=== PATIENT | male | born 1965 | race Caucasian/White ===

== ENCOUNTER 2022-12-02 12:09 | Emergency (ER) | payer BC, OTHER ==
--- OUTSIDE RECORDS SUMMARY | 2022-12-02 12:17 | XMS REPORT | Continuity of Care Document ---
:1965 Author Organization [facility] t Address [address] [place] [address] Care Team Providers Name Role Phone Unavailable Unavailable Unavailable Problems This patient has no known problems. Allergies, Adverse Reactions, Alerts This patient has no known allergies or adverse reactions. Medications This patient has no known medications. Procedures This patient has no known procedures. Encounters Start End Encounter Admission Attending Care Care Encounter Source Date/Time Date/Time Type Type Clinicians Facility Department ID 2022-07-27 2022-07-27 Outpatient SFA SFA [id number] [id number] Jose C 17:03:17 17:03:17 [id number] [facility] 2022-07-04 2022-07-04 Outpatient SFA SFA [id number] [id number] Jose C 17:21:38 17:21:38 [id number] [facility] 2022-06-30 2022-06-30 Outpatient SFA SFA [id number] Jose C 11:09:59 11:09:59 [id number] [facility] 2022-06-26 2022-06-26 Outpatient SFA SFA [id number] Jose C 17:19:05 17:19:05 [id number] [facility] 2022-06-06 2022-06-06 Outpatient SFA SFA [id number] [id number] Jose C 16:00:00 16:00:00 0222 [facility] 2022-05-29 2022-05-29 Outpatient SFA SFA [id number] Jose C 17:21:40 17:21:40 0214 [facility] 2022-04-28 2022-04-28 Outpatient SFA SFA [id number] 023 Jose C 08:57:50 08:57:50 0114 [facility] 2022-04-25 2022-04-25 Outpatient SFA SFA [id number] [id number] Jose C 16:20:42 16:20:42 0111 F Daniel Results Test Description Test Time Test Comments Results Result Comments Source COMPREHENSIVE METABOLIC PANEL 2022-07-02 01:29:48 Test Item Value Reference Range Interpretation Comme nts GLUCOSE (test code = 2217) 116 MG/DL 70-99 H BUN (test code = 2208) 13 MG/DL 6-20 CREATININE (test code = 1.28 MG/DL 0.80-1.40 2213) eGFR (2020 CKD-EPI) (test 66 ML/MIN/1.73 >60 code = 44526) CALC BUN/CREAT (test code = 10 RATIO 6-28 2234) SODIUM (test code = 223) 144 MEQ/L 133-146 POTASSIUM (test code = 4.8 MEQ/L 3.5-5.4 2227) CHLORIDE (test code = 221) 105 MEQ/L 95-107 CARBON DIOXIDE (test code = 25 MEQ/L 19-31 2205) CALCIUM (test code = 220) 9.8 MG/DL 8.5-10.5 PROTEIN, TOTAL (test code = 7.3 G/DL 6.1-8.3 2228) ALBUMIN (test code = 2201) 4.4 G/DL 3.5-5.2 CALC GLOBULIN (test code = 2.9 G/DL 1.9-3.7 2239) CALC A/G RATIO (test code = 1.5 RATIO 1.0-2.6 2233) BILIRUBIN, TOTAL (test code 0.4 MG/DL See_Comment [Automated message] The = 2206) system which ge nerated this result transmit sangita reference range: <=1.2. T he reference range was not u sed to interpret this result as normal/abnormal . ALKALINE PHOSPHATASE (test 89 U/L 40-123 code = 2204) AST (test code = 2218) 40 U/L 9-50 ALT (test code = 2219) 45 U/L 5-[address] [facility] has important pathology staff changes effective 06/13. New pathology staff will provide uninterrupted, excellent patient care an d clinical consultation. S ee URL: [email or web address] UNLESS OTHER JAFFE INDICATED, ALL TESTING PERFORMED AT [facility] [address] [place] [address] LABORATORY DIRE CTOR: TANGELA VIVEROS M.D. CLIA NUMBER [id number] CAP ACCREDITATION N O. [id number] HIV 1/2 4TH GEN, RFLX [id number] 03:14:07 Test Item Value Reference Range Interpretation Comments HIV 1/2 4TH GEN, RFLX CONF (test NON-REACTIVE NON-REACTIVE code = 3514) [id number] 23:35:03 Test Item Value Reference Range Interpretation Comments RPR RESULT (test code = NON-REACTIVE NON-REACTIVE 3501) RPR TITER (test code = 3500) NOT INDIC. TITER NOT INDIC. CT/NG, NAAT, [id number] 18:07:47 Test Item Value Reference Range Interpretation Comments GONORRHEA, NAAT NEGATIVE NEGATIVE Testing is performed with (test code = Tiffany DAY 680 [address]349) systems usingre al-time polymerase cecilia n reaction (PCR) method. A negative result does not exclude low level infection , specimensamplin g error, or collection erro r. CHLAMYDIA, NAAT NEGATIVE NEGATIVE Testing is performed with (test code = Tiffany DAY 680 91662) systems usingre al-time polymerase cecilia n reaction (PCR) method. A negative result does not exclude low level infection , specimensamplin g error, or collection erro r. LIPID [id number] 01:59:34 Test Item Value Reference Range Interpretation Comments CHOLESTEROL (test 172 MG/DL <200 code = 2210) TRIGLYCERIDES (test 169 MG/DL <150 H code = 2232) HDL CHOLESTEROL (test 34 MG/DL >39 L code = 2220) CALC LDL CHOL (test 109 MG/DL <100 H NOTE: C ALCULATED LDL code = 2237) IS BASED ON ABA-NORTON METHOD WHICHINCLUDES ADJUSTABLE TRIGLYCERIDE:VL DL CHOLESTEROL RAT IO.THIS FACTOR VARIES B Y MEASURED TRIGLY CERIDE AND NON-HDLCHOL ESTEROL CONCENTRATIONS WITH INCREASED CALCU LATED LDL SEENIN HIGH ER TRIGLYCERIDE OR LOWER NON-HDL SPECIME NS. FOR MOREINFORMATION , SEE CLIENT ANNOUNCE MENT AT [email or web address] RISK RATIO LDL/HDL 3.21 RATIO <3.55 (test code = 2238) PSA, [id number] 01:22:04 Test Item Value Reference Range Interpretation Comments PSA, TOTAL 0.99 NG/ML See_Comment NOTE: Methodol ogy is Tiffany (test code = Day Electroch emiluminescence 2606) Immunoassay tra ceable to WHO reference stand mauro 96/760. [Automated mess age] The system which generated this result transmitted ref erence range: <=4.00. The ref erence range was not used to int erpret this result as mynor l/abnormal. HEMOGLOBIN [id number] 07:02:52 Test Item Value Reference Range Interpretation Comments HEMOGLOBIN A1c (test 5.8 % 4.2-5.6 H UNLESS OTHERWISE code = 68438) INDICATED, ALL TESTING PERFORMED [facility] [address] [place] [address] [facility] DIRECTOR: Leonard PEREZIA NUMBER [id number] CAP ACCREDITATION N O. [id number]
[2022-12-02 12:50] LABS: Absolute Lymphocytes (CBC) 2.4 K/uL (0.7-4.9); Hematocrit 46.4 % (39.6-49.0); Lymphocytes % 22.3 % (15.3-44.8); MCV 87.2 fL (80-100); MPV 6.7 fL (7.6-11.3); Platelets 281 thou/uL (152-406); RBC Red Blood Cell Count 5.32 M/uL (4.33-5.43)
[2022-12-02 12:51] LABS: Protime INR 1.14
[2022-12-02 13:06] LABS: Albumin 3.5 g/dL (3.4-5.0); Bilirubin Direct 0.1 mg/dL (0-0.2); Bilirubin Indirect, Calculated 0.3 mg/dL (0.2-0.8); Bilirubin Total 0.4 mg/dL (0.2-1.0); Potassium 3.9 mEq/L (3.5-5.1); Protein, Total 7.1 g/dL (6.4-8.2); Troponin High Sensitivity 5.3 pg/mL (<58.9)
[2022-12-02] MEDS ORDERED: NA CHLORIDE 0.9% 1,000 ML ONE (13:44)
--- NOTE | 2022-12-02 13:44 | RAD REPORT ---
EXAM DESCRIPTION: CT - Chest For Pe Angio - 12/02/2022 1:32 pm CLINICAL HISTORY: back pain COMPARISON: CTANGIO CHEST FOR PE dated 11/01/2013 TECHNIQUE: Dynamically enhanced axial 3 mm thick images of the chest were obtained during administra tion of <100> mL Isovue 370 IV contrast. Coronal and oblique reconstruction images were generated and reviewed. Exam utilizes a protocol for optimal evaluation of pulmonary arterial tree. Maximum intensity projections 3D imaging was utilized All CT scans are performed using dose optimization technique as appropriate and may include automated exposure control or mA/KV adjustment according to patient size. FINDINGS: Chest Wall: No suspicious thyroid nodules or pathologic lymphadenopathy. Lungs: No acute abnormality. Pleura: No significant effusions or pneumothorax. Mediastinum/micki: No pathologic lymphadenopathy. Pulmonary arteries/Aorta: No filling defect identified. No aortic aneurysm. Heart: No significant pericardial effusion. Normal heart size. Upper abdomen: No acute abnormality.Hepatic steatosis. Circumferential thickened distal esophagus. Bones: No acute abnormality. IMPRESSION: Negative for pulmonary embolism. No acute findings in the chest.
--- NOTE | 2022-12-02 13:44 | RAD REPORT ---
EXAM DESCRIPTION: RAD - Chest Single View - 12/02/2022 1:37 pm CLINICAL HISTORY: back pain COMPARISON: CHEST SINGLE VIEW dated 11/03/2013; CHEST SINGLE VIEW dated 11/01/2013 FINDINGS: Lines: None. Lungs: No evidence of edema or pneumonia. Pleural: No significant pleural effusions or pneumothorax. Cardiac: The heart size is within normal limits. Mediastinum: Within normal limits. Bones: No acute fractures. Other: None IMPRESSION: No acute cardiopulmonary disease.
--- NOTE | 2022-12-02 13:48 | EDPHYS ---
Physician Documentation [facility] Name: Krzysztof Granado Age: 57 yrs Sex: Male : 1965 Arrival Date: 12/02/2022 Time: 12:09 Bed 16 Private MD: ED Physician Santino Gilliland HPI: 12/02 13:37 This 57 yrs old Male presents to ER via Ambulatory with complaints of Back Pain. snw 13:37 The patient presents with pain that is acute, with no known mechanism of injury. The snw symptoms are located in the right scapular area. Onset: The symptoms/episode began/occurred suddenly. The pain does not radiate. Associated signs and symptoms: The patient has no apparent associated signs or symptoms. The problem was sustained from unknown cause, feels like when he has a PE in the past. Severity of symptoms: At their worst the symptoms were moderate. The patient has experienced a previous episode. It is unknown whether or not the patient has recently seen a physician. Historical: - Allergies: 12:18 Benadryl; nj1 12:18 Sudafed; nj1 - PMHx: 12:18 Diabetes mellitus; Hypertensive disorder; Hypercholesterolemia; PE; nj1 - Immunization history:: Client reports receiving the 2nd dose of the Covid vaccine. - Social history:: Smoking status: Patient/guardian denies using tobacco, the patient reports quitting approximately 9 years ago. ROS: 13:38 Constitutional: Negative for fever, chills, and weight loss, Eyes: Negative for injury, snw pain, redness, and discharge, ENT: Negative for injury, pain, and discharge, Neck: Negative for injury, pain, and swelling, Cardiovascular: Negative for chest pain, palpitations, and edema, Respiratory: Negative for shortness of breath, cough, wheezing, and pleuritic chest pain, Abdomen/GI: Negative for abdominal pain, nausea, vomiting, diarrhea, and constipation, : Negative for injury, bleeding, discharge, and swelling, MS/Extremity: Negative for injury and deformity, Skin: Negative for injury, rash, and discoloration, Neuro: Negative for headache, weakness, numbness, tingling, and seizure, Psych: Negative for depression, anxiety, suicide ideation, homicidal ideation, and hallucinations. 13:38 Back: Positive for pain at rest, pain with movement, of the right scapular area, feels like when he had a PE, no trauma, denies smoking since 2015, c/o intermittent left lower ext swelling. Exam: 13:39 Constitutional: This is a well developed, well nourished patient who is awake, alert, snw and in no acute distress. Head/Face: Normocephalic, atraumatic. Eyes: Pupils equal round and reactive to light, extra-ocular motions intact. Lids and lashes normal. Conjunctiva and sclera are non-icteric and not injected. Cornea within normal limits. Periorbital areas with no swelling, redness, or edema. ENT: Nares patent. No nasal discharge, no septal abnormalities noted. Tympanic membranes are normal and external auditory canals are clear. Oropharynx with no redness, swelling, or masses, exudates, or evidence of obstruction, uvula midline. Mucous membranes moist. Neck: Trachea midline, no thyromegaly or masses palpated, and no cervical lymphadenopathy. Supple, full range of motion without nuchal rigidity, or vertebral point tenderness. No Meningismus. Chest/axilla: Normal chest wall appearance and motion. Nontender with no deformity. No lesions are appreciated. Cardiovascular: Regular rate and rhythm with a normal S1 and S2. No gallops, murmurs, or rubs. Normal PMI, no JVD. No pulse deficits. Abdomen/GI: Soft, non-tender, with normal bowel sounds. No distension or tympany. No guarding or rebound. No evidence of tenderness throughout. Back: No spinal tenderness. No costovertebral tenderness. Full range of motion. Skin: Warm, dry with normal turgor. Normal color with no rashes, no lesions, and no evidence of cellulitis. MS/ Extremity: Pulses equal, no cyanosis. Neurovascular intact. Full, normal range of motion. Neuro: Awake and alert, GCS 15, oriented to person, place, time, and situation. Cranial nerves II-XII grossly intact. Motor strength 5/5 in all extremities. Sensory grossly intact. Cerebellar exam normal. Normal gait. Psych: Awake, alert, with orientation to person, place and time. Behavior, mood, and affect are within normal limits. 13:39 Respiratory: the patient does not display signs of respiratory distress, Respirations: normal, Breath sounds: rhonchi, are located in both bases. 13:39 Neuro: Exam negative for acute changes. 13:39 Special observations: no evidence of discomfort, the patient smiles, the patient tolerates PO fluids, tolerates food. Vital Signs: 12:15 BP 117 / 81; Pulse 86; Resp 18; Temp 97.9(O); Pulse Ox 98% ; Weight 99.79 kg; Height 5 nj1 ft. 10 in. ; Pain 1/10; 14:00 BP 128 / 87; Pulse 78; Resp 16; Pulse Ox 98% on R/A; db 12:15 Body Mass Index 31.57 (99.79 kg, 177.8 cm) nj1 12:15 Pain Scale: Adult nj1 Cassie Coma Score: 13:39 Eye Response: spontaneous(4). Motor Response: obeys commands(6). Verbal Response: snw oriented(5). Total: 15. MDM: 12:30 Patient medically screened. snw 13:24 ED course: Pt to CT via w/c in no distress. snw 13:52 Differential diagnosis: Basilar Pneumonia chronic back pain, Fatigue Peptic Ulcer. Data snw reviewed: vital signs, nurses notes. Counseling: I had a detailed discussion with the patient and/or guardian regarding the historical points, exam findings, and any diagnostic results supporting the discharge/admit diagnosis, lab results, radiology results, the need for outpatient follow up, for definitive care, a assorter laundry, to return to the emergency department if symptoms worsen or persist or if there are any questions or concerns that arise at home. Response to treatment: the patient's symptoms have mildly improved after treatment. 12/02 12:25 Order name: Basic Metabolic Panel; Complete Time: 13:10 snw 12/02 12:25 Order name: CBC with Diff; Complete Time: 13:16 snw 12/02 12:25 Order name: LFT's; Complete Time: 13:10 snw 12/02 12:25 Order name: Magnesium; Complete Time: 13:10 snw 12/02 12:25 Order name: NT PRO-BNP; Complete Time: 13:10 snw 12/02 12:25 Order name: PT-INR; Complete Time: 12:51 snw 12/02 12:25 Order name: Troponin HS; Complete Time: 13:10 snw 12/02 12:25 Order name: CT Chest For PE Angio; Complete Time: 13:45 snw 12/02 12:25 Order name: XRAY Chest (1 view); Complete Time: 13:45 snw 12/02 12:25 Order name: EKG; Complete Time: 12:26 snw 12/02 12:25 Order name: Cardiac monitoring; Complete Time: 13:18 snw 12/02 12:25 Order name: EKG - Nurse/Tech; Complete Time: 13:18 snw 12/02 12:25 Order name: IV Saline Lock; Complete Time: 12:39 snw 12/02 12:25 Order name: Labs collected and sent; Complete Time: 12:39 snw 12/02 12:25 Order name: O2 Per Protocol; Complete Time: 12:39 snw 12/02 12:25 Order name: O2 Sat Monitoring; Complete Time: 12:39 snw EC:50 Rate is 78 beats/min. IN interval is normal. Q waves are Present in leads III, aVR. snw Clinical impression: NSR w/ Non-specific ST/T Changes. Administered Medications: 13:42 Drug: NS 0.9% IV 1000 ml Route: IV; Rate: 1 bolus; Site: left antecubital; db 14:32 Follow up: Response: No adverse reaction; IV Status: Completed infusion; IV Intake: db 1000ml 14:15 Drug: Pantoprazole IVP 40 mg Route: IVP; Site: left antecubital; db 14:32 Follow up: Response: No adverse reaction db Disposition Summary: 12/02/22 13:47 Discharge Ordered Location: Home snw Condition: Stable snw Diagnosis - Strain of muscle and tendon of back wall of thorax snw - Esophagitis, unspecified snw Followup: snw - With: Emergency Department - When: As needed - Reason: Worsening of condition Followup: snw - With: Private Physician - When: 2 - 3 days - Reason: Recheck today's complaints, Continuance of care, Re-evaluation by your physician Discharge Instructions: - Discharge Summary Sheet snw - Esophagitis snw - Back Injury Prevention snw - Bruin Diet snw - Nonalcoholic Fatty Liver Disease Diet, Adult snw Forms: - Medication Reconciliation Form snw - Thank You Letter snw - Antibiotic Education snw - Prescription Opioid Use snw - Patient Portal Instructions snw - Leadership Thank You Letter snw Prescriptions: - Protonix 40 mg Oral Tablet - take 1 tablet by ORAL route once daily; 30 tablet; Refills: 0, Product snw Selection Permitted Signatures: Dispatcher [employer] Agnieszka Posey FNP-C LINE SERVER-Diorw Lory Thomas, RN RN db Flakita Kenny RN RN nj1
--- NOTE | 2022-12-02 13:48 | ER ---
Nurse's Notes [facility] Name: Krzysztof Granado Age: 57 yrs Sex: Male : 1965 Arrival Date: 12/02/2022 Time: 12:09 Bed 16 Private MD: Diagnosis: Strain of muscle and tendon of back wall of thorax;Esophagitis, unspecified Presentation: 12/02 12:15 Chief complaint: Patient states: Right upper back pain, onset a couple days ago. Had nj1 the same pain back in 2013, let it go longer, and ended up having blood clots. Concerned it could be the same. Coronavirus screen: Vaccine status: Patient reports receiving the 2nd dose of the covid vaccine. Ebola Screen: Patient denies travel to an Ebola-affected area in the 21 days before illness onset. Initial Sepsis Screen: Does the patient meet any 2 criteria? No. Patient's initial sepsis screen is negative. Does the patient have a suspected source of infection? No. Patient's initial sepsis screen is negative. Risk Assessment: Do you want to hurt yourself or someone else? Patient reports no desire to harm self or others. Onset of symptoms was November 29, 2022. 12:15 Method Of Arrival: Ambulatory [facility] 12:15 Acuity: SIMONA 3 nj1 Historical: - Allergies: 12:18 Benadryl; nj1 12:18 Sudafed; nj1 - PMHx: 12:18 Diabetes mellitus; Hypertensive disorder; Hypercholesterolemia; PE; nj1 - Immunization history:: Client reports receiving the 2nd dose of the Covid vaccine. - Social history:: Smoking status: Patient/guardian denies using tobacco, the patient reports quitting approximately 9 years ago. Screenin:40 [facility] ED Fall Risk Assessment (Adult) History of falling in the last 3 months, db including since admission No falls in past 3 months (0 pts) Confusion or Disorientation No (0 pts) Intoxicated or Sedated No (0 pts) Impaired Gait No (0 pts) Mobility Assist Device Used No (0 pt) Altered Elimination No (0 pt) Score/Fall Risk Level 0 - 2 = Low Risk Oriented to surroundings, Maintained a safe environment. Abuse screen: Denies threats or abuse. Denies injuries from another. Nutritional screening: No deficits noted. Assessment: 13:05 Reassessment: Patient appears in no apparent distress at this time. Patient and/or db family updated on plan of care and expected duration. Pain level reassessed. Patient is alert, oriented x 3, equal unlabored respirations, skin warm/dry/pink. COMPLAINS OF BACK PAIN. General: Appears in no apparent distress. comfortable, Behavior is calm, cooperative. Pain: Complains of pain in back and right scapular area. Neuro: Level of Consciousness is awake, alert, obeys commands, Oriented to person, place, time, situation. Respiratory: Airway is patent Respiratory effort is even, unlabored, Respiratory pattern is regular, symmetrical. 14:12 Reassessment: Patient appears in no apparent distress at this time. Patient and/or db family updated on plan of care and expected duration. Pain level reassessed. Patient is alert, oriented x 3, equal unlabored respirations, skin warm/dry/pink. Vital Signs: 12:15 BP 117 / 81; Pulse 86; Resp 18; Temp 97.9(O); Pulse Ox 98% ; Weight 99.79 kg; Height 5 nj1 ft. 10 in. ; Pain 1/10; 14:00 BP 128 / 87; Pulse 78; Resp 16; Pulse Ox 98% on R/A; db 12:15 Body Mass Index 31.57 (99.79 kg, 177.8 cm) nj1 12:15 Pain Scale: Adult nj1 Cassie Coma Score: 13:39 Eye Response: spontaneous(4). Motor Response: obeys commands(6). Verbal Response: snw oriented(5). Total: 15. ED Course: 12:12 Patient arrived in ED. ts1 12:18 Triage completed. nj1 12:19 Arm band placed on right wrist. nj1 12:23 Agnieszka Parmar FNP-C is [facility]. snw 12:23 Santino Gilliland MD is Attending Physician. snw 12:25 Lory Thomas, SERA is Primary Nurse. db 12:39 Inserted saline lock: 20 gauge in left antecubital area, using aseptic technique. Blood ds4 collected. 13:33 CT Chest For PE Angio In Process Unspecified. EDMS 13:38 XRAY Chest (1 view) In Process Unspecified. EDMS 14:40 Patient has correct armband on for positive identification. Bed in low position. Call db light in reach. Side rails up X 1. Provided Education on: DISCHARGE. 14:40 No provider procedures requiring assistance completed. IV discontinued, intact, db bleeding controlled, No redness/swelling at site. Administered Medications: 13:42 Drug: NS 0.9% IV 1000 ml Route: IV; Rate: 1 bolus; Site: left antecubital; db 14:32 Follow up: Response: No adverse reaction; IV Status: Completed infusion; IV Intake: db 1000ml 14:15 Drug: Pantoprazole IVP 40 mg Route: IVP; Site: left antecubital; db 14:32 Follow up: Response: No adverse reaction db Medication: 14:40 VIS not applicable for this client. db Intake: 14:32 IV: 1000ml; Total: 1000ml. db Outcome: 13:47 Discharge ordered by . snw 14:40 Discharged to home ambulatory, with family. db 14:40 Condition: stable 14:40 Discharge instructions given to patient, Instructed on discharge instructions, follow up and referral plans. Prescriptions given X 1. 14:41 Patient left the ED. db Signatures: Dispatcher [employer] EDMS Agnieszka Parmar, ACCOUNT MANAGER [employer]-C ACCOUNT MANAGER [employer]-Csnw Vinicio Peres ds4 Lory Thomas, RN RN db Flakita Kenny RN RN nj1 Evie Logan PAS PAS ts1
[2022-12-02] MEDS ORDERED: PANTOPRAZOLE 40 MG INJ ONE (14:27)
[2022-12-02 14:59] VITALS: TEMP 97.9; O2SAT 98
[2022-12-02 15:04] VITALS: BP 128/87
--- NOTE | 2022-12-03 17:58 | EKG ---
Test Date: 2022-12-02 Test Time: 12:46:49 Rehabilitation Physician: JAYLYN MEASUREMENT RESULTS: Intervals: Rate: 78 NH: 128 QRSD: 94 QT: 374 QTc: 426 [place]: P: 45 NH: 128 QRS: -5 T: 24 INTERPRETIVE STATEMENTS: Normal sinus rhythm Normal ECG Compared to ECG 11/01/2013 07:38:28 No significant changes Electronically Signed On 12-03-22 17:56:43 CDT by Ignacio Castro
== END 2022-12-02 14:41 | disposition home or self-care (01) ==
LOC: ER 12:09
DX: S29.012A Strain of muscle and tendon of back wall of thorax, initial encounter (principal); K20.90 Esophagitis, unspecified without bleeding; Z88.8 Allergy status to other drugs, medicaments and biological substances
CPT/HCPCS: 96361; 93005; 85025; 80048; 36415; 83735; 85610; 80076; 84484; 83880; 71275; 71045; 96374; 99284; Q9967; C9113; J7030

== ENCOUNTER 2023-10-10 09:21 | Emergency (ER) | payer OTHER ==
--- OUTSIDE RECORDS SUMMARY | 2023-10-10 09:25 | XMS REPORT | Continuity of Care Document ---
Author Name Unknown Address [address] [facility] [place] [place] [address] [facility] thconnect Address [address] [facility] [place] [place] [address] Care Team Providers Care Contract Law Specialist Name Role Phone Sujatha JOYA, [facility] Primary Care Physician [phone] MANOLO RODRIGUEZ Attending Clinician Alecia tesfaye Payers Payer Name Policy Type Policy Number Effective Date Expirati on Date Source [employer] MP [facility] 5 O TELEVISION AGENT 94 ON 9 [id number] 2023 00:00:00 Medications Ordered Medication Name Filled Medication Name Start Date Stop Date Current Medication? Ordering Clinician Indication Dosage Frequency Signature (SIG) Comments Components Source GABAPENTIN 300MG(N) 4-15 00:00: 00 Yes 300 Jose C Sanchez METFORMIN ER 500MG GP 3-05 00:00: 00 Yes Jose C Sanchez ATORVASTATI N 10MG 3-05 00:00: 00 Yes Jose C Sanchez LISINOPRIL 10MG 2-08 00:00: 00 Yes Jose C Sanchez ATORVASTATI N 10MG 2022-04- 00:00: 00 Yes Jose C Sanchez LISINOPRIL 10MG 2022-04 1-13 00:00: 00 Yes Jose C Sanchez TAKE 1 TABLET BY MOUTH EVERY DAY 2022-04 0-16 00:00: 00 Yes 10 Jose C Sanchez TAKE 1 TABLET DAILY. 2022-04 0-16 00:00: 00 Yes 10 Jose C Sanchez TAKE 1 TABLET DAILY DIRECTED. 2022-04 0-16 00:00: 00 Yes 500 Jose Cjosé miguel Sanchez 1-2 CAPSULES ONCE A DAY 30 MINUTES PRIOR TO BEDTIME 2022-04 0-16 00:00: 00 08-04 00:00 :00 No 3 Jose C Sam Sanchez PANTOPRAZOL E 40MG DR 8-20 00:00: 00 Yes Jose C Sam Sanchez TAKE 1 TABLET BY MOUTH EVERY DAY 8-15 00:00: 00 08-04 00:00 :00 No Jose C Sam Sanchez TAKE 1 TABLET BY MOUTH EVERY DAY DIRECTED 815 00:00: 00 08-04 00:00 :00 No Jose C F Daniel TAKE 1 TABLET DAILY 8- 00:00: 00 08-04 00:00 :00 No Jose C F Daniel TAKE 1 TABLET BY MOUTH EVERY DAY 4-07 00:00: 00 08-04 00:00 :00 No Jose C Sam Daniel TAKE 1 TABLET DAILY. 3-14 00:00: 00 08-04 00:00 :00 No 10 Jose C Sam Sanchez TAKE 1 TABLET DAILY. 2-14 00:00: 00 08-04 00:00 :00 No 10 Jose C Sam Sanchez TAKE 1 TABLET DAILY DIRECTED. 2-14 00:00: 00 08-04 00:00 :00 No 500 Jose C Sam Sanchez DICLOFENAC 1% GEL 1-11 00:00: 00 Yes Jose C Sam Sanchez TAKE 1 TABLET EVERY 8 HOURS NEEDED. 1-11 00:00: 00 08-04 00:00 :00 No 800 Jose Cjosé miguel Sanchez Vital Signs Vital Name Observation Time Observation Value Comments S aldiallo BP Systolic 2023-07-29 16:00:00 127 mm[Hg] Step hen Sam Sanchez BP Diastolic 2023-07-29 16:00:00 83 mm[Hg] [place] cohen Sam Sanchez Weight Measured 2023-07-29 16:00:00 229.80 pounds Jose Cjosé miguel Sanchez Height Measured 2023-07-29 16:00:00 70.00 inches Jose C Sam Sanchez Body Temperature 2023-07-29 16:00:00 98.10 degrees Jose C F Daniel Heart Rate 2023-07-29 16:00:00 71.00 /min Audrey en F Daniel Respiratory Rate 2023-07-29 16:00:00 19.00 /min Jose C F Daniel BP Systolic 2023-05-07 16:12:00 110 mm[Hg] Step hen F Daniel BP Diastolic 2023-05-07 16:12:00 74 mm[Hg] [place] phen F Daniel Weight Measured 2023-05-07 16:12:00 218.00 pounds Jose C F Daniel Height Measured 2023-05-07 16:12:00 70.00 inches Jose C F Daniel Body Temperature 2023-05-07 16:12:00 97.50 degrees Jose C F Daniel Heart Rate 2023-05-07 16:12:00 81.00 /min Audrey en F Daniel Respiratory Rate 2023-05-07 16:12:00 18.00 /min Jose C F Daniel BP Systolic 2023-01-28 17:08:00 119 mm[Hg] Step hen F Daniel BP Diastolic 2023-01-28 17:08:00 72 mm[Hg] [place] phen F Daniel Weight Measured 2023-01-28 17:08:00 225.80 pounds Jose C F Daniel Height Measured 2023-01-28 17:08:00 70.00 inches Jose C F Daniel Body Temperature 2023-01-28 17:08:00 97.10 degrees Jose C F Daniel Heart Rate 2023-01-28 17:08:00 74.00 /min Audrey en F Daniel Respiratory Rate 2023-01-28 17:08:00 Jose C F Daniel BP Systolic 2022-12-08 10:59:00 121 mm[Hg] Step hen F Daniel BP Diastolic 2022-12-08 10:59:00 80 mm[Hg] [place] phen F Daniel Weight Measured 2022-12-08 10:59:00 220.80 pounds Jose C F Daniel Height Measured 2022-12-08 10:59:00 70.00 inches Jose C F Daniel Body Temperature 2022-12-08 10:59:00 98.80 degrees Jose C F Daniel Heart Rate 2022-12-08 10:59:00 74.00 /min Adurey en F Daniel Respiratory Rate 2022-12-08 10:59:00 Jose C F Daniel Heart Rate 2022-07-27 17:14:00 81.00 /min Audrey en F Daniel Respiratory Rate 2022-07-27 17:14:00 18.00 /min Jose C F Daniel BP Systolic 2022-07-27 17:14:00 132 mm[Hg] Step hen F Daniel BP Diastolic 2022-07-27 17:14:00 77 mm[Hg] [place] phen F Daniel Weight Measured 2022-07-27 17:14:00 220.80 pounds Joes C F Daniel Height Measured 2022-07-27 17:14:00 70.00 inches Jose C F Daniel Body Temperature 2022-07-27 17:14:00 98.20 degrees Jose C F Daniel BP Systolic 2022-06-26 17:36:00 144 mm[Hg] Step hen F Daniel BP Diastolic 2022-06-26 17:36:00 84 mm[Hg] [place] phen F Daniel Weight Measured 2022-06-26 17:36:00 230.20 pounds Jose C F Daniel Height Measured 2022-06-26 17:36:00 70.00 inches Jose C F Daniel Body Temperature 2022-06-26 17:36:00 98.10 degrees Jose C F Daniel Heart Rate 2022-06-26 17:36:00 73.00 /min Audrey en F Daniel Respiratory Rate 2022-06-26 17:36:00 18.00 /min Jose C F Daniel BP Systolic 2022-06-26 17:25:00 144 mm[Hg] Step hen F Daniel BP Diastolic 2022-06-26 17:25:00 84 mm[Hg] [place] phen F Daniel Weight Measured 2022-06-26 17:25:00 230.20 pounds Jose C F Daniel Height Measured 2022-06-26 17:25:00 70.00 inches Jose C F Daniel Body Temperature 2022-06-26 17:25:00 98.10 degrees Jose C F Daniel Heart Rate 2022-06-26 17:25:00 73.00 /min Audrey en F Daniel Respiratory Rate 2022-06-26 17:25:00 18.00 /min Jose C F Daniel BP Systolic 2022-06-06 16:03:00 135 mm[Hg] Step hen F Daniel BP Diastolic 2022-06-06 16:03:00 88 mm[Hg] [place] phen F Daniel Weight Measured 2022-06-06 16:03:00 220.20 pounds Jose C F Daniel Height Measured 2022-06-06 16:03:00 70.00 inches Jose C F Daniel Body Temperature 2022-06-06 16:03:00 98.60 degrees Jose C F Daniel Heart Rate 2022-06-06 16:03:00 79.00 /min Audrey en F Daniel Respiratory Rate 2022-06-06 16:03:00 18.00 /min Jose C F Daniel BP Systolic 2022-05-29 17:28:00 150 mm[Hg] Step hen F Daniel BP Diastolic 2022-05-29 17:28:00 115 mm[Hg] [place] phen F Daniel Weight Measured 2022-05-29 17:28:00 222.00 pounds Jose C F Daniel Height Measured 2022-05-29 17:28:00 70.00 inches Jose C F Daniel Body Temperature 2022-05-29 17:28:00 98.20 degrees Jose C F Daniel Heart Rate 2022-05-29 17:28:00 81.00 /min Audrey en F Daniel Respiratory Rate 2022-05-29 17:28:00 18.00 /min Jose C F Daniel BP Systolic 2022-04-25 16:27:00 134 mm[Hg] Step hen F Daniel BP Diastolic 2022-04-25 16:27:00 90 mm[Hg] [place] phen F Daniel Weight Measured 2022-04-25 16:27:00 223.80 pounds Jose C F Daniel Height Measured 2022-04-25 16:27:00 70.00 inches Jose C F Daniel Body Temperature 2022-04-25 16:27:00 98.40 degrees Jose C F Daniel Heart Rate 2022-04-25 16:27:00 97.00 /min Audrey en F Daniel Respiratory Rate 2022-04-25 16:27:00 18.00 /min Jose C F Daniel Encounters Start Date/Time End Date/Time Encounter Type Admission Type Attending [facility] Care Department Encounter ID Source 2023-10-10 08:30:00 2023-10-10 08:30:00 Outpatient MANOLO RODRIGUEZ [id number] Francisca Mart 2023-09-11 16:00:00 2023-09-11 16:00:00 Outpatient MANOLO RODRIGUEZ [id number] Francisca Mart 2023-07-29 15:53:44 2023-07-29 15:53:44 Outpatient SFA SFA [id number] Jose C Sanchez 2023-07-29 00:00:00 2023-07-29 00:00:00 Outpatient Visit SFA [id number] Jose C Sanchez 2023-05-08 08:31:21 2023-05-08 08:31:21 Outpatient SFA SFA [id number] Jose C Sanchez 2023-05-07 15:59:02 2023-05-07 15:59:02 Outpatient SFA SFA [id number] Jose C Sanchez 2023-01-28 17:07:55 2023-01-28 17:07:55 Outpatient SFA SFA [id number] Jose C Sanchez 2022-12-08 10:55:50 2022-12-08 10:55:50 Outpatient SFA SFA [id number] Jose C Sanchez 2022-07-27 17:03:17 2022-07-27 17:03:17 Outpatient SFA SFA [id number] Jose C Sanchez 2022-07-04 17:21:38 2022-07-04 17:21:38 Outpatient SFA SFA [id number] Jose C Sanchez 2022-06-30 11:09:59 2022-06-30 11:09:59 Outpatient SFA SFA [id number] Jose C Sanchez 2022-06-26 17:19:05 2022-06-26 17:19:05 Outpatient SFA SFA [id number] Jose C Sanchez 2022-06-06 16:00:00 2022-06-06 16:00:00 Outpatient SFA SFA [id number] Jose C Sanchez 2022-05-29 17:21:40 2022-05-29 17:21:40 Outpatient SFA SFA [id number] Jose C Sanchez 2022-04-28 08:57:50 2022-04-28 08:57:50 Outpatient [facility] [id number] Jose C Sanchez 2022-04-25 16:20:42 2022-04-25 16:20:42 Outpatient [facility] [id number] Jose C Sanchez Results Test Description Test Time Test Comments Results Result Co mments Source TSH, THIRD [id number] 04:26:39* Test Item Value Reference Range Interpretation Comme nts TSH, THIRD GENERATION (test code = 2821) 1.150 UIU/ML 0.400-4.100 LIPID [id number] 04:24:29* Test Item Value Reference Range Interpretation Comme nts CHOLESTEROL (test code = 2210) 145 MG/DL <200 TRIGLYCERIDES (test code = 2232) 160 MG/DL <150 H HDL CHOLESTEROL (test code = 2220) 34 MG/DL >39 L CALC LDL CHOL (test code = 2237) 85 MG/DL <100 NOTE: CALCULATED LDL IS BASED ON ABA-NORTON METHOD WHICHINCLUDES ADJUSTABLE TRIGLYCERIDE:VLDL CHOLESTEROL RATIO.THIS FACTOR VARIES BY MEASURED TRIGLYCERIDE AND NON-HDLCHOLESTEROL CONCENTRATIONS WITH INCREASED CALCULATED LDL SEENIN HIGHER TRIGLYCERIDE OR LOWER NON-HDL SPECIMENS. FOR MOREINFORMATION, SEE CLIENT ANNOUNCEMENT AT [email or web address] RISK RATIO LDL/HDL (test code = 2238) 2.50 RATIO <3.55 COMPREHENSIVE METABOLIC [id number] 04:24:29* Test Item Value Reference Range Interpretation Comme nts GLUCOSE (test code = 2217) 98 MG/DL 70-99 BUN (test code = 2208) 16 MG/DL 6-20 CREATININE (test code = 2214) 1.24 MG/DL 0.80-1.40 eGFR (2020 CKD-EPI) (test co de = 14446) 68 ML/MIN/1.73 >60 CALC BUN/CREAT (test code = 2235) 13 RATIO 6-28 SODIUM (test code = 2231) 141 MEQ/L 133-146 POTASSIUM (test code = 2228) 4.5 MEQ/L 3.5-5.4 CHLORIDE (test code = 2215) 104 MEQ/L 95-107 CARBON DIOXIDE (test code = 2206) 24 MEQ/L 19-31 CALCIUM (test code = 2208) 9.8 MG/DL 8.5-10.5 PROTEIN, TOTAL (test code = 2228) 7.5 G/DL 6.1-8.3 ALBUMIN (test code = 2200) 4.5 G/DL 3.5-5.2 CALC GLOBULIN (test code = 2239) 3.0 G/DL 1.9-3.7 CALC A/G RATIO (test code = 2233) 1.5 RATIO 1.0-2.6 BILIRUBIN, TOTAL (test code = 2206) 0.4 MG/DL <=1.2 ALKALINE PHOSPHATASE (test code = 2203) 76 U/L 40-123 AST (test code = 2217) 36 U/L 9-50 ALT (test code = 2218) 43 U/L 5-50 HEMOGLOBIN [id number] 03:23:41* Test Item Value Reference Range Interpretation Comme nts HEMOGLOBIN A1c (test code = 95746) 5.8 % 4.2-5.6 H [employer] GUIDELINES FOR HGB A1C: PREDIABETES/INCREASED RISK . . . . . . . 5.7-6.4% DIAGNOSIS OF DIABETES . . . . . . . . . >=6.5% WITH CONFIRMATION OR APPROPRIATE SYMPTOMS NOTE: ASSAY MAY BE AFFECTED BY HEMOGLOBINOPATHIES (SICKLE CELL ANEMIA, S-C DISEASE, OTHERS) OR ARTIFICIALLY LOWERED BY DECREASED RED CELL SURVIVAL (HEMOLYTIC ANEMIAS, BLOOD LOSS, ETC.). CONSIDER ALTERNATE TESTING OR LABORATORY CONSULTATION. CBC W/AUTO DIFF WITH [id number] 02:14:20* Test Item Value Reference Range Interpretation Comme nts WBC (test code = 1001) 9.0 K/UL 3.5-11.0 RBC (test code = 1002) 5.65 M/UL 4.50-6.10 HEMOGLOBIN (test code = 1003) 16.5 G/DL 13.5-17.0 HEMATOCRIT (test code = 1004) 49.4 % 40.0-51.0 MCV (test code = 1005) 87.4 fL 80.0-99.0 MCH (test code = 1006) 29.2 PG 25.0-33.0 MCHC (test code = 1007) 33.4 G/DL 31.0-36.0 RDW (test code = 1038) 12.6 % 11.5-15.0 NEUTROPHILS (test code = 1008) 55.5 % LYMPHOCYTES (test code = 1010) 28.1 % MONOCYTES (test code = 1011) 9.9 % EOSINOPHILS (test code = 1012) 5.5 % BASOPHILS (test code = 1013) 0.7 % IMMATURE GRANULOCYTES (test code = 1036) 0.3 % NUCLEATED RBCS (test code = 1065) 0.0 /100 WBC'S See_Comment [Automated messa ge] The system which generated this result transmitted reference range: 0.0. The reference range was not used to interpret this result as normal/abnormal. PLATELET COUNT (test code = 1015) 298 K/UL 130-400 ABSOLUTE NEUTROPHILS (test code = 1066) 4.97 K/UL 1.50-7.50 ABSOLUTE LYMPHOCYTES (test code = 1067) 2.52 K/UL 1.00-4.00 ABSOLUTE MONOCYTES (test code = 1068) 0.89 K/UL 0.20-1.00 ABSOLUTE EOSINOPHILS (test code = 1040) 0.49 K/UL 0.00-0.50 ABSOLUTE BASOPHILS (test code = 1069) 0.06 K/UL 0.00-0.20 ABS IMMATURE GRANULOCYTES (test code = 1020) 0.03 K/UL 0.00-0.10 ABS NUCLEATED RBCS (test code = 77352) 0.00 K/UL 0.00-0.11 VITAMIN D, 25 [id number] 00:00:00* Test Item Value Reference Range Interpretation Comme nts VITAMIN D, 25 OH (test code = 4958) 42 NG/ML [facility]AUTO [id number] 00:00:00* Test Item Value Reference Range Interpretation Comme nts WBC (test code = 1001) 9.0 K/UL RBC (test code = 1002) 5.65 M/UL HEMOGLOBIN (test code = 1003) 16.5 G/DL HEMATOCRIT (test code = 1004) 49.4 % MCV (test code = 1005) 87.4 fL MCH (test code = 1006) 29.2 PG MCHC (test code = 1007) 33.4 G/DL RDW (test code = 1038) 12.6 % NEUTROPHILS (test code = 1008) 55.5 % LYMPHOCYTES (test code = 1010) 28.1 % MONOCYTES (test code = 1011) 9.9 % EOSINOPHILS (test code = 1012) 5.5 % BASOPHILS (test code = 1013) 0.7 % IMMATURE GRANULOCYTES (test code = 1036) 0.3 % NUCLEATED RBCS (test code = 1065) 0.0 /100WBC'S PLATELET COUNT (test code = 1015) 298 K/UL ABSOLUTE NEUTROPHILS (test c ode = 1066) 4.97 K/UL ABSOLUTE LYMPHOCYTES (test c ode = 1067) 2.52 K/UL ABSOLUTE MONOCYTES (test cod e = 1068) 0.89 K/UL ABSOLUTE EOSINOPHILS (test c ode = 1040) 0.49 K/UL ABSOLUTE BASOPHILS (test cod e = 1069) 0.06 K/UL ABS IMMATURE GRANULOCYTES (t est code = 1020) 0.03 K/UL ABS NUCLEATED RBCS (test cod e = 27309) 0.00 K/UL Jose C SanchezHEMOGLOBIN [id number] 00:00:00* Test Item Value Reference Range Interpretation Comme nts HEMOGLOBIN A1c (test code = 92743) 5.8 % Jose C SanchezLIPID [id number] 00:00:00* Test Item Value Reference Range Interpretation Comme nts CHOLESTEROL (test code = 2210) 145 MG/DL TRIGLYCERIDES (test code = 2232) 160 MG/DL HDL CHOLESTEROL (test code = 2220) 34 MG/DL CALC LDL CHOL (test code = 2237) 85 MG/DL RISK RATIO LDL/HDL (test cod e = 2238) 2.50 RATIO Jose C SanchezCOMPREHENSIVE METABOLIC [id number] 00:00:00* Test Item Value Reference Range Interpretation Comme nts GLUCOSE (test code = 2217) 98 MG/DL BUN (test code = 2208) 16 MG/DL CREATININE (test code = 2214) 1.24 MG/DL eGFR (2020 CKD-EPI) (test co de = 10333) 68 ML/MIN/1.73 CALC BUN/CREAT (test code = 2235) 13 RATIO SODIUM (test code = 2231) 141 MEQ/L POTASSIUM (test code = 2228) 4.5 MEQ/L CHLORIDE (test code = 2215) 104 MEQ/L CARBON DIOXIDE (test code = 2206) 24 MEQ/L CALCIUM (test code = 2209) 9.8 MG/DL PROTEIN, TOTAL (test code = 2229) 7.5 G/DL ALBUMIN (test code = 2201) 4.5 G/DL CALC GLOBULIN (test code = 2240) 3.0 G/DL CALC A/G RATIO (test code = 2234) 1.5 RATIO BILIRUBIN, TOTAL (test code = 2207) 0.4 MG/DL ALKALINE PHOSPHATASE (test code = 220) 76 U/L AST (test code = 2218) 36 U/L ALT (test code = 2219) 43 U/L Jose C SanchezTSH, THIRD [id number] 00:00:00* Test Item Value Reference Range Interpretation Comme nts TSH, THIRD GENERATION (test code = 2821) 1.150 UIU/ML Jose C SanchezLIPID [id number] 03:52:10* Test Item Value Reference Range Interpretation Comme nts CHOLESTEROL (test code = 2210) 125 MG/DL <200 TRIGLYCERIDES (test code = 2232) 241 MG/DL <150 H HDL CHOLESTEROL (test code = 2220) 31 MG/DL >39 L CALC LDL CHOL (test code = 2237) 64 MG/DL <100 NOTE: CALCULATED LDL IS BASED ON ABA-[place] METHOD WHICHINCLUDES ADJUSTABLE TRIGLYCERIDE:VLDL CHOLESTEROL RATIO.THIS FACTOR VARIES BY MEASURED TRIGLYCERIDE AND NON-HDLCHOLESTEROL CONCENTRATIONS WITH INCREASED CALCULATED LDL SEENIN HIGHER TRIGLYCERIDE OR LOWER NON-HDL SPECIMENS. FOR MOREINFORMATION, SEE CLIENT ANNOUNCEMENT AT [email or web address] RISK RATIO LDL/HDL (test code = 2238) 2.06 RATIO <3.55 COMPREHENSIVE METABOLIC [id number] 03:52:10* Test Item Value Reference Range Interpretation Comme nts GLUCOSE (test code = 2216) 137 MG/DL 70-99 H BUN (test code = 2207) 16 MG/DL 6-20 CREATININE (test code = 2214) 1.27 MG/DL 0.80-1.40 eGFR (2020 CKD-EPI) (test code = 82450) 66 ML/MIN/1.73 >60 CALC BUN/CREAT (test code = 2235) 13 RATIO 6-28 SODIUM (test code = 223) 143 MEQ/L 133-146 POTASSIUM (test code = 8) 4.6 MEQ/L 3.5-5.4 CHLORIDE (test code = 2215) 107 MEQ/L 95-107 CARBON DIOXIDE (test code = 6) 25 MEQ/L 19-31 CALCIUM (test code = 2208) 9.5 MG/DL 8.5-10.5 PROTEIN, TOTAL (test code = 2228) 7.0 G/DL 6.1-8.3 ALBUMIN (test code = 2200) 4.3 G/DL 3.5-5.2 CALC GLOBULIN (test code = 0) 2.7 G/DL 1.9-3.7 CALC A/G RATIO (test code = 2233) 1.6 RATIO 1.0-2.6 BILIRUBIN, TOTAL (test code = 2206) 0.4 MG/DL See_Comment [Automated me ssage] The system which generated this result transmitted reference range: <=1.2. The reference range was not used to interpret this result as normal/abnormal. ALKALINE PHOSPHATASE (test code = 2203) 66 U/L 40-123 AST (test code = 8) 39 U/L 9-50 ALT (test code = 2219) 42 U/L 5-50 UNLESS OTHERWISE INDICATED, ALL TESTING PERFORMED AT [facility] [address] [place] [address] POST CLOSING SPECIALIST: TANGELA BANGURA M.D. CLIA NUMBER [id number] [facility] [place]. [id number] HEMOGLOBIN [id number] 03:17:16* Test Item Value Reference Range Interpretation Comme nts HEMOGLOBIN A1c (test code = 89856) 5.7 % 4.2-5.6 H [employer] GUIDELINES FOR HGB A1C: PREDIABETES/INCREASED RISK . . . . . . . 5.7-6.4% DIAGNOSIS OF DIABETES . . . . . . . . . >=6.5% WITH CONFIRMATION OR APPROPRIATE SYMPTOMS NOTE: ASSAY MAY BE AFFECTED BY HEMOGLOBINOPATHIES (SICKLE CELL ANEMIA, S-C DISEASE, OTHERS) OR ARTIFICIALLY LOWERED BY DECREASED RED CELL SURVIVAL (HEMOLYTIC ANEMIAS, BLOOD LOSS, ETC.). CONSIDER ALTERNATE TESTING OR LABORATORY CONSULTATION. CBC W/AUTO DIFF WITH [id number] 02:32:30* Test Item Value Reference Range Interpretation Comme nts WBC (test code = 1001) 8.6 K/UL 3.5-11.0 RBC (test code = 1002) 5.41 M/UL 4.50-6.10 HEMOGLOBIN (test code = 1003) 15.7 G/DL 13.5-17.0 HEMATOCRIT (test code = 1004) 47.9 % 40.0-51.0 MCV (test code = 1005) 88.5 fL 80.0-99.0 MCH (test code = 1006) 29.0 PG 25.0-33.0 MCHC (test code = 1007) 32.8 G/DL 31.0-36.0 RDW (test code = 1038) 12.7 % 11.5-15.0 NEUTROPHILS (test code = 1008) 60.9 % LYMPHOCYTES (test code = 1010) 26.0 % MONOCYTES (test code = 1011) 8.4 % EOSINOPHILS (test code = 1012) 3.3 % BASOPHILS (test code = 1013) 0.8 % IMMATURE GRANULOCYTES (test code = 1036) 0.6 % NUCLEATED RBCS (test code = 1065) 0.0 /100 WBC'S See_Comment [Automated messa ge] The system which generated this result transmitted reference range: 0.0. The reference range was not used to interpret this result as normal/abnormal. PLATELET COUNT (test code = 1015) 325 K/UL 130-400 ABSOLUTE NEUTROPHILS (test code = 1066) 5.25 K/UL 1.50-7.50 ABSOLUTE LYMPHOCYTES (test code = 1067) 2.24 K/UL 1.00-4.00 ABSOLUTE MONOCYTES (test code = 1068) 0.72 K/UL 0.20-1.00 ABSOLUTE EOSINOPHILS (test code = 1040) 0.28 K/UL 0.00-0.50 ABSOLUTE BASOPHILS (test code = 1069) 0.07 K/UL 0.00-0.20 ABS IMMATURE GRANULOCYTES (test code = 1020) 0.05 K/UL 0.00-0.10 ABS NUCLEATED RBCS (test code = 64107) 0.00 K/UL 0.00-0.11 CBC W/AUTO [id number] 00:00:00* Test Item Value Reference Range Interpretation Comme nts WBC (test code = 1001) 8.6 K/UL RBC (test code = 1002) 5.41 M/UL HEMOGLOBIN (test code = 1003) 15.7 G/DL HEMATOCRIT (test code = 1004) 47.9 % MCV (test code = 1005) 88.5 fL MCH (test code = 1006) 29.0 PG MCHC (test code = 1007) 32.8 G/DL RDW (test code = 1038) 12.7 % NEUTROPHILS (test code = 1008) 60.9 % LYMPHOCYTES (test code = 1010) 26.0 % MONOCYTES (test code = 1011) 8.4 % EOSINOPHILS (test code = 1012) 3.3 % BASOPHILS (test code = 1013) 0.8 % IMMATURE GRANULOCYTES (test code = 1036) 0.6 % NUCLEATED RBCS (test code = 1065) 0.0 /100WBC'S PLATELET COUNT (test code = 1015) 325 K/UL ABSOLUTE NEUTROPHILS (test c ode = 1066) 5.25 K/UL ABSOLUTE LYMPHOCYTES (test c ode = 1067) 2.24 K/UL ABSOLUTE MONOCYTES (test cod e = 1068) 0.72 K/UL ABSOLUTE EOSINOPHILS (test c ode = 1040) 0.28 K/UL ABSOLUTE BASOPHILS (test cod e = 1069) 0.07 K/UL ABS IMMATURE GRANULOCYTES (t est code = 1020) 0.05 K/UL ABS NUCLEATED RBCS (test cod e = 75232) 0.00 K/UL Jose C SanchezHEMOGLOBIN [id number] 00:00:00* Test Item Value Reference Range Interpretation Comme nts HEMOGLOBIN A1c (test code = 78336) 5.7 % Jose C SanchezLIPID [id number] 00:00:00* Test Item Value Reference Range Interpretation Comme nts CHOLESTEROL (test code = 2210) 125 MG/DL TRIGLYCERIDES (test code = 2232) 241 MG/DL HDL CHOLESTEROL (test code = 2220) 31 MG/DL CALC LDL CHOL (test code = 2237) 64 MG/DL RISK RATIO LDL/HDL (test cod e = 2238) 2.06 RATIO Jose C SanchezCOMPREHENSIVE METABOLIC [id number] 00:00:00* Test Item Value Reference Range Interpretation Comme nts GLUCOSE (test code = 2217) 137 MG/DL BUN (test code = 2208) 16 MG/DL CREATININE (test code = 2214) 1.27 MG/DL eGFR (2020 CKD-EPI) (test co de = 01841) 66 ML/MIN/1.73 CALC BUN/CREAT (test code = 2235) 13 RATIO SODIUM (test code = 2231) 143 MEQ/L POTASSIUM (test code = 2228) 4.6 MEQ/L CHLORIDE (test code = 2215) 107 MEQ/L CARBON DIOXIDE (test code = 2206) 25 MEQ/L CALCIUM (test code = 2209) 9.5 MG/DL PROTEIN, TOTAL (test code = 2229) 7.0 G/DL ALBUMIN (test code = 2201) 4.3 G/DL CALC GLOBULIN (test code = 2240) 2.7 G/DL CALC A/G RATIO (test code = 2234) 1.6 RATIO BILIRUBIN, TOTAL (test code = 2207) 0.4 MG/DL ALKALINE PHOSPHATASE (test code = 2204) 66 U/L AST (test code = 2218) 39 U/L ALT (test code = 2219) 42 U/L Jose C SanchezCOMPREHENSIVE METABOLIC [id number] 01:29:48* Test Item Value Reference Range Interpretation Comme nts GLUCOSE (test code = 2217) 116 MG/DL 70-99 H BUN (test code = 2208) 13 MG/DL 6-20 CREATININE (test code = 2214) 1.28 MG/DL 0.80-1.40 eGFR (2020 CKD-EPI) (test code = 68498) 66 ML/MIN/1.73 >60 CALC BUN/CREAT (test code = 2235) 10 RATIO 6-28 SODIUM (test code = 2231) 144 MEQ/L 133-146 POTASSIUM (test code = 2228) 4.8 MEQ/L 3.5-5.4 CHLORIDE (test code = 2215) 105 MEQ/L 95-107 CARBON DIOXIDE (test code = 2206) 25 MEQ/L 19-31 CALCIUM (test code = 2209) 9.8 MG/DL 8.5-10.5 PROTEIN, TOTAL (test code = 2229) 7.3 G/DL 6.1-8.3 ALBUMIN (test code = 2201) 4.4 G/DL 3.5-5.2 CALC GLOBULIN (test code = 2240) 2.9 G/DL 1.9-3.7 CALC A/G RATIO (test code = 2234) 1.5 RATIO 1.0-2.6 BILIRUBIN, TOTAL (test code = 2207) 0.4 MG/DL See_Comment [Automated me ssage] The system which generated this result transmitted reference range: <=1.2. The reference range was not used to interpret this result as normal/abnormal. ALKALINE PHOSPHATASE (test code = 2204) 89 U/L 40-123 AST (test code = 2218) 40 U/L 9-50 ALT (test code = 2219) 45 U/L 5-50 [facility] has impo rtant pathology staff changes effective 06/13/2022. New pathology staff will provide uninterrupted, excellent patient care and clinical consultation. See URL: [email or web address]. UNLESS OTHERWISE INDICATED, ALL TESTING PERFORMED AT [facility] [address] [place] [address] POST CLOSING SPECIALIST: TANGELA BANGURA M.D. CLIA NUMBER [id number] [facility]. [id number] COMPREHENSIVE METABOLIC [id number] 00:00:00* Test Item Value Reference Range Interpretation Comme nts GLUCOSE (test code = 2217) 116 MG/DL BUN (test code = 2208) 13 MG/DL CREATININE (test code = 2214) 1.28 MG/DL eGFR (2020 CKD-EPI) (test co de = 30879) 66 ML/MIN/1.73 CALC BUN/CREAT (test code = 2235) 10 RATIO SODIUM (test code = 2231) 144 MEQ/L POTASSIUM (test code = 2228) 4.8 MEQ/L CHLORIDE (test code = 2215) 105 MEQ/L CARBON DIOXIDE (test code = 2206) 25 MEQ/L CALCIUM (test code = 2209) 9.8 MG/DL PROTEIN, TOTAL (test code = 2229) 7.3 G/DL ALBUMIN (test code = 2201) 4.4 G/DL CALC GLOBULIN (test code = 2240) 2.9 G/DL CALC A/G RATIO (test code = 2234) 1.5 RATIO BILIRUBIN, TOTAL (test code = 2207) 0.4 MG/DL ALKALINE PHOSPHATASE (test code = 2204) 89 U/L AST (test code = 2218) 40 U/L ALT (test code = 2219) 45 U/L Jose C SanchezHIV 1/2 4TH GEN, RFLX [id number] 03:14:07* Test Item Value Reference Range Interpretation Comme nts HIV 1/2 4TH GEN, RFLX CONF ( test code = 3514) NON-REACTIVE NON-REACTIVE HIV 1/2 4TH GEN, RFLX [id number] 00:00:00* Test Item Value Reference Range Interpretation Comme nts HIV 1/2 4TH GEN, RFLX CONF ( test code = 3514) NON-REACTIVE Jose C [id number] 23:35:03* Test Item Value Reference Range Interpretation Comme nts RPR RESULT (test code = 3501) NON-REACTIVE NON-REACTIVE RPR TITER (test code = 3500) NOT INDIC. TITER NOT INDIC. CT/NG, NAAT, [id number] 18:07:47* Test Item Value Reference Range Interpretation Comme nts GONORRHEA, NAAT (test code = 25693) NEGATIVE NEGATIVE Testing is perfo rmed with [employer] 6800/8800 systems usingreal-time polymerase chain reaction (PCR) method. A negative result does not exclude low level infection, specimensampling error, or collection error. CHLAMYDIA, NAAT (test code = 66689) NEGATIVE NEGATIVE Testing is perfo rmed with [employer] 6800/8800 systems usingreal-time polymerase chain reaction (PCR) method. A negative result does not exclude low level infection, specimensampling error, or collection error. LIPID [id number] 01:59:34* Test Item Value Reference Range Interpretation Comme nts CHOLESTEROL (test code = 2210) 172 MG/DL <200 TRIGLYCERIDES (test code = 2232) 169 MG/DL <150 H HDL CHOLESTEROL (test code = 2220) 34 MG/DL >39 L CALC LDL CHOL (test code = 2237) 109 MG/DL <100 H NOTE: CALCULATED LDL IS BASED ON ABA-NORTON METHOD WHICHINCLUDES ADJUSTABLE TRIGLYCERIDE:VLDL CHOLESTEROL RATIO.THIS FACTOR VARIES BY MEASURED TRIGLYCERIDE AND NON-HDLCHOLESTEROL CONCENTRATIONS WITH INCREASED CALCULATED LDL SEENIN HIGHER TRIGLYCERIDE OR LOWER NON-HDL SPECIMENS. FOR MOREINFORMATION, SEE CLIENT ANNOUNCEMENT AT [email or web address] RISK RATIO LDL/HDL (test code = 2238) 3.21 RATIO <3.55 PSA, [id number] 01:22:04* Test Item Value Reference Range Interpretation Comme nts PSA, TOTAL (test code = 2606) 0.99 NG/ML See_Comment NOTE: Methodolog y is Tiffany [employer] Electrochemiluminescence Immunoassay traceable to WHO reference standard 96/760. [Automated message] The system which generated this result transmitted reference range: <=4.00. The reference range was not used to interpret this result as normal/abnormal. [id number] 00:00:00* Test Item Value Reference Range Interpretation Comme nts RPR RESULT (test code = 3501) NON-REACTIVE RPR TITER (test code = 3500) NOT INDIC. TITER Jose C SanchezCT/NG, TMA, [id number] 00:00:00* Test Item Value Reference Range Interpretation Comme nts GONORRHEA, NAAT (test code = 81561) NEGATIVE CHLAMYDIA, NAAT (test code = 26335) NEGATIVE Jose C SanchezPSA, [id number] 00:00:00* Test Item Value Reference Range Interpretation Comme nts PSA, TOTAL (test code = 2606) 0.99 NG/ML Jose C SanchezLIPID [id number] 00:00:00* Test Item Value Reference Range Interpretation Comme nts CHOLESTEROL (test code = 2210) 172 MG/DL TRIGLYCERIDES (test code = 2232) 169 MG/DL HDL CHOLESTEROL (test code = 2220) 34 MG/DL CALC LDL CHOL (test code = 2237) 109 MG/DL RISK RATIO LDL/HDL (test cod e = 2238) 3.21 RATIO Jose C SanchezHEMOGLOBIN [id number] 07:02:52* Test Item Value Reference Range Interpretation Comme nts HEMOGLOBIN A1c (test code = 62471) 5.8 % 4.2-5.6 H UNLESS OTHERWISE INDICATED, ALL TESTING PERFORMED ATCLINICAL PATHOLOGY [employer] [address] [place] [id number] POST CLOSING SPECIALIST: DILSHAD KOTHARI M.D. CLIA NUMBER [id number] [facility] [place] [id number] HEMOGLOBIN [id number] 00:00:00* Test Item Value Reference Range Interpretation Comme nts HEMOGLOBIN A1c (test code = 59811) 5.8 % Jose C Vargas Daniel Notes Date/Time Note Provider Source 2023-07-29 00:00:00 [id number] T00:00:00+ + +| Plan Activity | Plan Date |+ + +| Pt has been directed to discontinue home isolation following COVID-19 infection | 2020-01-11 || and may resume daily activities and/or return to work/school | || Discontinue self-quarantine instructed per CDC guidelines using a | || ltpa-poval-luhnftc-kksow-mjx-nyhe-sin tm-qggjnhpp-gierjayo for persons diagnosed | || with COVID-19. | || At least 10 days have passed since symptoms first appeared and | || At least 24 hours have passed since last fever without the use of | || fever-reducing medications and | || Symptoms have improved | || Pt was instructed to continue to follow local guidelines and recommendations | || with regarding to social distancing and facial covering. | || RTO if needed | || | || Pt will be picking up return to work clearance form at the [facility] ([facility]) | |+ + +| weight and height disproportionate | 2022-04-25 || therapeutic lifestyle changes warranted | |+ + +| Daily activity recommended. | 2023-07-29 |+ + +| Recommend healthy eating with foods from a variety of food groups, appropriate | 2023-07-29 || portion sizes, and few sugary snacks/drinks. | |+ + +| Gonorrhea, Chlamydia, RPR | 2022-04-25 || await results | |+ + +| Hepatitis | 2022-04-25 || await results | |+ + +| FIT CARD | 2022-04-25 |+ + +| PSA | 2022-04-25 || await results | |+ + +| CBC, CMP | 2022-04-25 || await results | |+ + +| Lipid panel | 2022-04-25 || await results | |+ + +| Shingrix #1 /TDAP/FLU | 2022-04-25 || side effects to administration of vaccine explained. | || | || PT informed to RTC in 2-6 months for Shingrix #2 | |+ + +| Guidance provided | 2022-04-25 || await all results | || RTC 1 year WAE | |+ + +| HIV | 2022-04-25 || await results | |+ + +| A1C | 2022-04-25 || await results | |+ + +| Maintain BP log | 2022-05-29 || Goal SBP < 140, DBP < 90 | || RTC if not at goal | |+ + +| Most likely arthritis | 2022-04-25 || Ibuprofen 800 mg TID | || Diclofenac gel 1% | || RTC if symptoms worsen or persist | |+ + +| weight and height disproportionate | 2022-05-29 || Therapeutic lifestyle changes warranted | |+ + +| A1C | 2023-07-29 |+ + +| ASCVD 10.7% | 2022-05-29 || Start Atorvastatin 10 mg daily | || Patient education | || Therapeutic Lifestyle changes discussed | || RTC 6 months for follow-up | |+ + +| reviewed and discussed | 2022-05-29 |+ + +| possibility related to intake of carbs-- advise patient to monitor when sx | 2022-06-06 || occur. | || Avoid greasy and fatting food. | || follow up as needed. | |+ + +| Increase fluid intake | 2022-06-06 || OTC ibuprofen or acetaminophen | |+ + +| increase physical activity | 2023-07-29 |+ + +| refill lisinopril 10 mg | 2022-06-26 || Begin checking BP at home and keep log to bring to next clinic visit. | || DASH diet, Sodium reduction <2.4 g/day | || Weight reduction, Exercise 150 mins/wk | || Limit alcohol and caffeine consumption, Smoking cessation | |+ + +| f/u in3 months for a1c | 2022-07-27 |+ + +| Atorvastatin 10 mg qd po | 2022-11-27 |+ + +| Doxepin take as directed | 2023-01-28 || s/e of meds discussed | |+ + +| intermitted swelling of b/l feet | 2023-01-28 || hx of ankle sprain | || resolves with ibuprofen | || REcommend staying off of feet as much as pt can. | || no varicose veins. | || If no improvement, will do additional blood work to rule out metabolic | || abnormalities | |+ + +| Nighttime wrist splint | 2023-07-29 |+ + +| Wrist splints | 2023-07-29 || Gabapentin 300 mg BID | || RTC 1 month for follow-up | |+ + +[id number] of TreatmentLNCARE PLANTXTSFA|[id number] for patient [id number] Section NarrativeNARRATIVEFormatted C-CDA narrative textSFAStosorio Ybarra [facility]2024-04-22T00:00:00 Jose C Judith [facility]"
--- NOTE | 2023-10-10 09:52 | RAD REPORT ---
EXAM DESCRIPTION: CT - Head Brain Wo Cont - 10/10/2023 9:45 am CLINICAL HISTORY: HEADACHE Headache, drowsiness, blurry vision COMPARISON: No comparisons TECHNIQUE: All CT scans are performed using dose optimization technique as appropriate and may inclu de automated exposure control or mA/KV adjustment according to patient size. FINDINGS: No intracranial hemorrhage, hydrocephalus or extra-axial fluid collection.No areas of brai n edema or evidence of midline shift. The paranasal sinuses and mastoids are clear. The calvarium is intact. IMPRESSION: No acute intracranial abnormality.
--- NOTE | 2023-10-10 10:00 | EDPHYS ---
Physician Documentation [facility] Name: Krzysztof Granado Age: 57 yrs Sex: Male : 1965 Arrival Date: 10/10/2023 Time: 09:21 Bed 8 Private MD: ED Physician Quincy Simpson HPI: 10/09 09:51 This 57 yrs old Male presents to ER via Ambulatory with complaints of Dizziness, Vision rt Problem. 09:51 Patient presents to the ED with blurred vision starting yesterday at about 9 AM. rt Patient subsequently developed a left-sided headache that lasted for about 3. Patient to take ibuprofen. Patient states that following that, the symptoms have completely resolved. Denies other acute complaints at this time. Patient was sent to ED from PCP. Symptoms are moderate in severity, no other aggravating or alleviating factors. Denies any symptoms currently.. Historical: - Allergies: 09:42 Benadryl; db 09:42 Sudafed; db - PMHx: 09:42 diabetes mellitus; Hypercholesterolemia; Hypertensive disorder; PE; db - Immunization history:: Adult Immunizations unknown. - Infectious Disease History:: Denies. - Social history:: Smoking status: Patient/guardian denies using tobacco. - Family history:: not pertinent. ROS: 09:51 Constitutional: Negative for fever, chills, and weight loss, Cardiovascular: Negative rt for chest pain, palpitations, and edema, Respiratory: Negative for shortness of breath, cough, wheezing, and pleuritic chest pain, Abdomen/GI: Negative for abdominal pain, nausea, vomiting, diarrhea, and constipation, Skin: Negative for injury, rash, and discoloration, 09:51 Eyes: Positive for blurry vision, Negative for Double vision, pain, 09:51 Neuro: Positive for headache, Negative for loss of consciousness, Exam: 09:51 Constitutional: This is a well developed, well nourished patient who is awake, alert, rt and in no acute distress. Head/Face: Normocephalic, atraumatic. Chest/axilla: Normal chest wall appearance and motion. Nontender with no deformity. No lesions are appreciated. Cardiovascular: Regular rate and rhythm with a normal S1 and S2. No gallops, murmurs, or rubs. Normal PMI, no JVD. No pulse deficits. Respiratory: Lungs have equal breath sounds bilaterally, clear to auscultation and percussion. No rales, rhonchi or wheezes noted. No increased work of breathing, no retractions or nasal flaring. Abdomen/GI: Soft, non-tender, with normal bowel sounds. No distension or tympany. No guarding or rebound. No evidence of tenderness throughout. Skin: Warm, dry with normal turgor. Normal color with no rashes, no lesions, and no evidence of cellulitis. MS/ Extremity: Pulses equal, no cyanosis. Neurovascular intact. Full, normal range of motion. 09:51 Eyes: No visual field deficits, extraocular muscles are intact. 09:51 Neuro: Speech normal, cranial nerves II through XII intact, no ataxia wutjqp-uf-xlzu, strength and sensation intact in upper and lower extremities, Vital Signs: 09:30 BP 118 / 80; Pulse 72; Resp 18; Temp 98.7(O); Pulse Ox 95% ; Weight 101.24 kg; Height 5 db ft. 10 in. ; Pain 0/10; 10:00 BP 102 / 84; Pulse 71; Resp 18; Pulse Ox 95% ; db 09:30 Body Mass Index 32.02 (101.24 kg, 177.8 cm) db 09:30 Pain Scale: Adult db MDM: 09:29 Patient medically screened. rt 09:59 Differential diagnosis: Migraine, TIA. Data reviewed: vital signs, nurses notes, rt radiologic studies. Independent interpretation of the following test(s) in the Emergency Department CT Scan: My interpretation is No intracranial hemorrhage interpretation of CT scan images. Test considered but Not performed: Other Details Symptoms resolved, EKG, labs and not likely to benefit patient.. Care significantly affected by the following chronic conditions: Diabetes. Counseling: I had a detailed discussion with the patient and/or guardian regarding the historical points, exam findings, and any diagnostic results supporting the discharge/admit diagnosis, radiology results, the need for outpatient follow up. ED course: Patient with resolved symptoms, has a normal neurologic exam, presentation is most consistent with migraine with aura, no further workup is indicated this time, patient to follow-up with neurologist as an outpatient, return precautions discussed.. 10/09 09:37 Order name: CT Head Brain wo Cont; Complete Time: 09:53 rt Administered Medications: No medications were administered Disposition Summary: 10/10/23 09:59 Discharge Ordered Notes: Location: Home rt Problem: new rt Symptoms: are resolved rt Condition: Stable rt Diagnosis - Migraine with aura rt Followup: rt - With: Willi Ortega MD - When: 2 - 3 days - Reason: Discharge Instructions: - Discharge Summary Sheet rt - Migraine Headache rt Forms: - Medication Reconciliation Form rt - Antibiotic Education rt - Prescription Opioid Use rt - Patient Portal Instructions rt - Leadership Thank You Letter rt Signatures: Dispatcher [employer] Lory Archibald, SERA RN db Quincy Simpson MD MD rt
--- NOTE | 2023-10-10 10:00 | ER ---
Nurse's Notes [facility] Name: Krzysztof Granado Age: 57 yrs Sex: Male : 1965 Arrival Date: 10/10/2023 Time: 09:21 Bed 8 Private MD: Diagnosis: Migraine with aura Presentation: 10/09 09:30 Chief complaint: Patient states: LEFT SIDED HEADACHE WITH DIZZINESS AND VISION CHANGES db YESTERDAY . SYMPTOMS HAVE RESOLVED TODAY. DENIES HEADACHE TODAY DENIES DIZZINESS AND DENIES BLURRY VISION. Coronavirus screen: Client denies travel out of the [place] in the last 14 days. At this time, the client does not indicate any symptoms associated with coronavirus-19. Ebola Screen: Patient negative for fever greater than or equal to 101.5 degrees Fahrenheit, and additional compatible Ebola Virus Disease symptoms Patient denies exposure to infectious person. Patient denies travel to an Ebola-affected area in the 21 days before illness onset. No symptoms or risks identified at this time. Initial Sepsis Screen: Does the patient meet any 2 criteria? No. Patient's initial sepsis screen is negative. Initial Sepsis Screen: Does the patient have a suspected source of infection? No. Patient's initial sepsis screen is negative. Risk Assessment: Do you want to hurt yourself or someone else? Patient reports no desire to harm self or others. Onset of symptoms was October 10, 2023. 09:30 Method Of Arrival: Ambulatory db 09:30 Acuity: SIMONA 3 db Triage Assessment: 09:42 General: Appears in no apparent distress. comfortable, Behavior is calm, cooperative. db Pain: Denies pain. EENT: No deficits noted. No signs and/or symptoms were reported regarding the EENT system. Neuro: No deficits noted. Neuro: Level of Consciousness is awake, alert, obeys commands, Oriented to person, place, time, situation, Speech is normal, Facial symmetry appears normal. Respiratory: Airway is patent Respiratory effort is even, unlabored, Respiratory pattern is regular, symmetrical. Historical: - Allergies: 09:42 Benadryl; db 09:42 Sudafed; db - PMHx: 09:42 diabetes mellitus; Hypercholesterolemia; Hypertensive disorder; PE; db - Immunization history:: Adult Immunizations unknown. - Infectious Disease History:: Denies. - Social history:: Smoking status: Patient/guardian denies using tobacco. - Family history:: not pertinent. Screenin:24 [facility] ED Fall Risk Assessment (Adult) History of falling in the last 3 months, db including since admission No falls in past 3 months (0 pts) Confusion or Disorientation No (0 pts) Intoxicated or Sedated No (0 pts) Impaired Gait No (0 pts) Mobility Assist Device Used No (0 pt) Altered Elimination No (0 pt) Score/Fall Risk Level 0 - 2 = Low Risk Oriented to surroundings, Maintained a safe environment. Abuse screen: Denies threats or abuse. Denies injuries from another. Nutritional screening: No deficits noted. Tuberculosis screening: No symptoms or risk factors identified. Assessment: 09:43 Reassessment: SEE TRIAGE FOR INITIAL ASSESSMENT. db 10:24 Reassessment: Patient appears in no apparent distress at this time. No changes from db previously documented assessment. Patient and/or family updated on plan of care and expected duration. Pain level reassessed. Patient is alert, oriented x 3, equal unlabored respirations, skin warm/dry/pink. Neuro: Level of Consciousness is awake, alert, obeys commands, Oriented to person, place, time, situation. Respiratory: Airway is patent Respiratory effort is even, unlabored, Respiratory pattern is regular, symmetrical. Vital Signs: 09:30 BP 118 / 80; Pulse 72; Resp 18; Temp 98.7(O); Pulse Ox 95% ; Weight 101.24 kg; Height 5 db ft. 10 in. ; Pain 0/10; 10:00 BP 102 / 84; Pulse 71; Resp 18; Pulse Ox 95% ; db 09:30 Body Mass Index 32.02 (101.24 kg, 177.8 cm) db 09:30 Pain Scale: Adult db ED Course: 09:24 Patient arrived in ED. mr 09:29 Quincy Simpson MD is Attending Physician. rt 09:34 Lory Thomas RN is Primary Nurse. db 09:42 Triage completed. db 09:42 Arm band placed on Patient placed in an exam room. db 09:[address] db 09:46 CT Head Brain wo Cont In Process Unspecified. EDMS 09:59 Willi Ortega MD is Referral Physician. rt 10:24 Patient has correct armband on for positive identification. Bed in low position. Call db light in reach. Side rails up X 1. Provided Education on: RADIOLOGY, DISCHARGE AND FOLLOWUP . Pulse ox on. NIBP on. 10:24 No provider procedures requiring assistance completed. Patient did not have IV access db during this emergency room visit. Administered Medications: No medications were administered Medication: 10:24 VIS not applicable for this client. db Outcome: 09:59 Discharge ordered by . rt 10:24 Discharged to home ambulatory, db 10:24 Condition: stable 10:24 Discharge instructions given to patient, Instructed on discharge instructions, follow up and referral plans. 10:26 Patient left the ED. db Signatures: Dispatcher [employer] EDMS Lala Orellana, Reg Reg mr Lory Thomas, RN RN db Quincy Simpson MD MD rt
[2023-10-10 10:38] VITALS: TEMP 98.7; O2SAT 95
[2023-10-10 10:39] VITALS: BP 102/84
== END 2023-10-10 10:26 | disposition home or self-care (01) ==
LOC: ER 09:21
DX: G43.109 Migraine with aura, not intractable, without status migrainosus (principal); E11.9 Type 2 diabetes mellitus without complications; I10 Essential (primary) hypertension; E78.00 Pure hypercholesterolemia, unspecified; Z88.8 Allergy status to other drugs, medicaments and biological substances
CPT/HCPCS: 70450; 99284

== ENCOUNTER 2024-08-23 19:03 | Emergency (ER) | payer OTHER ==
--- OUTSIDE RECORDS SUMMARY | 2024-08-23 19:10 | XMS REPORT | Continuity of Care Document ---
Author Name Unknown Address [address] [place] [address] 1 [address] [place] [address] [facility] Address [address] [facility] [address] [place] [address] Care Team Providers Care Turf And Grounds Supervisor Name Role Phone Curt Stone Primary Care Physician [phone] KEMAR CRESPO Attending Clinician Unavailable TERRY TRACY Attending Clinician Unavailab SAJI Florian Attending Clinician Unavailable MANOLO RODRIGUEZ Attending Clinician Unava ilable LAB90 Attending Clinician Unavailable Payers Payer Name Policy Type Policy Number Effective Date Expirati on Date Source [place] [id number] [employer] 94 [phone] [id number] 2024 00:00:00 Problems Condition Name Condition Details Condition Category Status Onset Date Resolution Date Last Treatment Date Treating Clinician Comments Source Well adult exam Well adult exam Disease Active 2023-04 0- 00:00: 00 Francisca Seybold - Externa l Type 2 diabetes mellitus with hyperglyce otilio, without long-term current use of insulin (multi HCC) Type 2 diabetes mellitus with hyperglyce otilio, without long-term current use of insulin (multi HCC) Disease Active 12-13 00:00: 00 Francisca Sedarrynold - Externa l Dizzy Dizzy Disease Active 10-09 00:00: 00 Francisca Seybold - Externa l Hypertensi on Hypertensi on Disease Active Francisca Yousifold - Externa l History of pulmonary embolus (PE) History of pulmonary embolus (PE) Disease Active Overview: Tino peterson of this note might be different from the original. 10 yr ago Francisca Mart - Externa l High cholestero l High cholestero l Disease Active Francisca Keitaa l [id number] Body mass index [BMI] 32.0-32.9, adult Problem [facility] [id number] Polycythem ia Problem [facility] [id number] Other chronic pain Problem [facility] [id number] Mixed hyperlipid emia Problem [facility] [id number] TIESHA (obstructi ve sleep apnea) Problem [facility] [id number] Essential hypertensi on Problem [facility] [id number] Bilateral carpal tunnel syndrome Problem [facility] [id number] Type 2 diabetes mellitus without complicati on, without long-term current use of insulin Problem [facility] [id number] Other obesity due to excess calories Problem [facility] [id number] Stage 3a chronic kidney disease Problem [facility] Social History Social Habit Start Date Stop Date Quantity Comments Source Sexual orientation Nickolas Mart - External Sex Assigned At [facility] Alcoholic beverage intake 2024-01-20 00:00:00 2024-01-20 00:00:00 Ex-drinker (finding) Francisca Mart - External History of Social function 2023-09-11 00:00:00 2023-09-11 00:00:00 Francisca Mart - External Alcohol Comment 2023-09-11 00:00:00 2023-09-11 00:00:00 stopped 30 yrs ago Francisca Mart - External Cigarettes smoked current (pack per day) - Reported 2023-09-11 00:00:00 2023-09-11 00:00:00 Francisca Ascencio External Cigarette pack-years 2023-09-11 00:00:00 2023-09-11 00:00:00 Francisca Ascencio External Tobacco use and exposure 2023-09-11 00:00:00 2023-09-11 00:00:00 Smokeless tobacco non-user Francisca Rosedarrynsharmaine - External Sex 2023-08-21 21:59:08 2023-08-21 21:59:08 Male (finding) Francisca Rosepaulette - Renaldo History of Tobacco Use 1985-04-14 00:00:00 2014-04-14 00:00:00 [facility] Smoking Status Start Date Stop Date Source Former Smoker 2024-07-30 00:00:00 2024-07-30 00:00:00 [facility] Medications Ordered Medication Name Filled Medication Name Start Date Stop Date Current Medication? Ordering Clinician Indication Dosage Frequency Signature (SIG) Comments Components Source Flonase Allergy Relief 50 mcg/actuati on nasal spray,suspe nsion 08-22 00:00: 00 Yes 1mcg/ac tuation Jose C Sanchez promethazin e-DM 6.25 mg-15 mg/5 mL oral syrup - 00:00: 00 Yes 5mg/5 mL Jose C Sanchez ketoconazol e 2 % topical cream -11 00:00: 00 Yes % Jose C Sanchez atorvastati n 10 mg tablet - 00:00: 00 Yes mg Jose C Sanchez lisinopril 10 mg tablet 06-03 00:00: 00 Yes mg Jose C Sanchez metformin ER 500 mg tablet,exte nded release 24 hr 2- 00:00: 00 Yes mg Jose C Sanchez Atorvastati n Calcium 10 MG oral Tablet 2023-04 0 00:00: 00 Yes [id number] 10mg QD Take 1 tablet (10 mg total) by mouth daily. Francisca elizalde Lisinopril 10 MG oral Tablet 2023-04 00:00: 00 Yes [id number] 10mg QD Take 1 tablet (10 mg total) by mouth daily. Francisca elizalde Metformin HCl ER 500 MG oral TABLET SR 24 HR 2023-04 00:00: 00 Yes [id number] 500mg QD Take 1 tablet (500 mg total) by mouth daily (with breakfast) . Francisca elizalde Gabapentin 300 MG oral Capsule 9-03 00:00: 00 Yes [id number] 300mg Q.5D take 1 capsule by mouth twice a day Francisca elizalde Atorvastati n Calcium 10 MG oral Tablet 12-13 12:44: 43 12-13 00:00 :00 No 10mg QD Take 1 tablet (10 mg total) by mouth daily. Francisca elizalde Metformin HCl ER 500 MG oral TABLET SR 24 HR 12-13 12:44: 43 12-13 00:00 :00 No 500mg QD Take 1 tablet (500 mg total) by mouth daily (with breakfast) . Francisca elizalde Lisinopril 10 MG oral Tablet 12-13 12:44: 43 12-13 00:00 :00 No 10mg QD Take 1 tablet (10 mg total) by mouth daily. Francisca elizalde Atorvastati n Calcium 10 MG oral Tablet 12-13 00:00: 00 01-19 00:00 :00 No [id number] 10mg QD Take 1 tablet (10 mg total) by mouth daily. Francisca elizalde Lisinopril 10 MG oral Tablet 12-13 00:00: 00 01-19 00:00 :00 No [id number] 10mg QD Take 1 tablet (10 mg total) by mouth daily. Francisca elizalde Metformin HCl ER 500 MG oral TABLET SR 24 HR 12-13 00:00: 00 01-19 00:00 :00 No [id number] 500mg QD Take 1 tablet (500 mg total) by mouth daily (with breakfast) . Francisca elizalde Atorvastati n Calcium 10 MG oral Tablet 10-09 08:50: 16 Yes 10mg QD Take 1 tablet (10 mg total) by mouth daily. Francisca elizalde Metformin HCl ER 500 MG oral TABLET SR 24 HR 10-09 08:50: 16 Yes 500mg QD Take 1 tablet (500 mg total) by mouth daily (with breakfast) . Francisca Seybold - Externa l Lisinopril 10 MG oral Tablet 6-27 08:50: 16 Yes 10mg QD Take 1 tablet (10 mg total) by mouth daily. Francisca Rosedarrynsharmaine Ascencio Externa l Gabapentin 300 MG oral Capsule 5-29 00:00: 00 Yes [id number] 300mg Q.5D Take 1 capsule (300 mg total) by mouth 2 times daily. Francisca Keitaa l gabapentin 300 mg capsule -15 00:00: 00 Yes 1mg Jose C Sanchez gabapentin 300 mg capsule 4-15 00:00: 00 Yes 1mg Jose C Sanchez METFORMIN ER 500MG GP 3-05 00:00: 00 Yes Jose C Sanchez ATORVASTATI N 10MG 3-05 00:00: 00 Yes Jose C Sanchez LISINOPRIL 10MG 2-08 00:00: 00 Yes Jose C Sanchez ATORVASTATI N 10MG 2022-04- 00:00: 00 Yes Jose C Sanchez LISINOPRIL 10MG 2022-04 1-13 00:00: 00 Yes Jose C Sanchez 1-2 CAPSULES ONCE A DAY 30 MINUTES PRIOR TO BEDTIME 2022-04 016 00:00: 00 08-25 00:00 :00 No 3 Jose C Sanchez TAKE 1 TABLET BY MOUTH EVERY DAY 2022-04 016 00:00: 00 08-25 00:00 :00 No 10 Jose C Sanchez TAKE 1 TABLET DAILY. 2022-0416 00:00: 00 08-25 00:00 :00 No 10 Jose C Sanchez TAKE 1 TABLET DAILY DIRECTED. 2022-04 016 00:00: 00 08-25 00:00 :00 No 500 Jose C Sanchez PANTOPRAZOL E 40MG DR -20 00:00: 00 Yes Jose C Sanchez TAKE 1 TABLET BY MOUTH EVERY DAY -15 00:00: 00 08-25 00:00 :00 No Jose C Sanchez TAKE 1 TABLET BY MOUTH EVERY DAY DIRECTED -15 00:00: 00 08-25 00:00 :00 No Jose C Sanchez TAKE 1 TABLET DAILY 8-15 00:00: 00 08-25 00:00 :00 No Jose C Sanchez TAKE 1 TABLET BY MOUTH EVERY DAY 4-07 00:00: 00 08-25 00:00 :00 No Jose C Sanchez TAKE 1 TABLET DAILY. 3-14 00:00: 00 08-25 00:00 :00 No 10 Jose C Sanchez TAKE 1 TABLET DAILY. 2-14 00:00: 00 08-25 00:00 :00 No 10 Jose C Sanchez TAKE 1 TABLET DAILY DIRECTED. 2-14 00:00: 00 08-25 00:00 :00 No 500 Jose C Sanchez DICLOFENAC 1% GEL 1-11 00:00: 00 Yes Jose C Sanchez TAKE 1 TABLET EVERY 8 HOURS NEEDED. 1-11 00:00: 00 08-25 00:00 :00 No 800 Jose C Sanchez Atorvastati n Calcium 10 MG Atorvastati n Calcium 10 MG No 1{table t} QD Atorvastat in Calcium 10 MG Gabapentin 300 MG Gabapentin 300 MG No 1{capsu le} BID Gabapentin 300 MG metFORMIN HCl ER 500 MG metFORMIN HCl ER 500 MG No 1{table t_with_ evening _meal} QD metFORMIN HCl ER 500 MG Ketoconazol e 2 % Ketoconazol e 2 % No 1{appli cation} QD Ketoconazo le 2 % Lisinopril 10 MG Lisinopril 10 MG No 1{table t} QD Lisinopril 10 MG Immunizations Ordered Immunization Name Filled Immunization Name Date Status Comments Source Influenza, injectable, MDCK, quadrivalent, preservative Influenza, injectable, MDCK, quadrivalent, preservative 2023-12-03 00:00:00 Completed Jose C Sam Sanchez zoster zoster 2023-12-03 00:00:00 Completed Jose C Sam Daniel AFLURIA TRIVALENT MDV Unknown Completed Francisca Mart - External Vital Signs Vital Name Observation Time Observation Value Comments S ource height 2024-07-30 13:00:00 71 [in_i] [facility] weight 2024-07-30 13:00:00 227.0 [lb_av] Co mmon [facility] temperature 2024-07-30 13:00:00 97.2 [degF] Com mon [facility] bmi 2024-07-30 13:00:00 31.66 kg/m2 Comm on [facility] oximetry 2024-07-30 13:00:00 95 % Commo n [facility] respiratory rate 2024-07-30 13:00:00 15 /min Common [facility] blood pressure systolic 2024-07-30 13:00:00 116 mm[Hg] Common [facility] blood pressure diastolic 2024-07-30 13:00:00 75 mm[Hg] [facility] Systolic blood pressure 2024-01-20 21:13:00 110 mm[Hg] Francisca Seybo ld - External Diastolic blood pressure 2024-01-20 21:13:00 76 mm[Hg] Francisca Seybo ld - External Heart rate 2024-01-20 21:13:00 93 /min Kelse y Seybold - External Body temperature 2024-01-20 21:13:00 37.22 Hayde Francisca Seybold - External Respiratory rate 2024-01-20 21:13:00 15 /min Francisca Seybold - External Body height 2024-01-20 21:13:00 177.8 cm Iris ey Seybold - External Body weight 2024-01-20 21:13:00 103.42 kg Iris ey Seybold - External BMI 2024-01-20 21:13:00 32.71 kg/m2 Iris ey Seybold - External Systolic blood pressure 2023-10-10 13:47:00 98 mm[Hg] Francisca Seybo ld - External Diastolic blood pressure 2023-10-10 13:47:00 62 mm[Hg] Francisca Seybo ld - External Heart rate 2023-10-10 13:47:00 77 /min Kelse y Seybold - External Body temperature 2023-10-10 13:47:00 36.78 Hayde Francisca Seybold - External Respiratory rate 2023-10-10 13:47:00 20 /min Francisca Mart - External Body height 2023-10-10 13:47:00 177.8 cm Iris Mart - External Body weight 2023-10-10 13:47:00 100.699 kg Iris Yousifold - External BMI 2023-10-10 13:47:00 31.85 kg/m2 Iris Mart - External Oxygen saturation in Arterial blood by Pulse oximetry 2023-10-10 13:47:00 98 /min Francisca Reeves ld - External BP Systolic 2024-08-22 13:18:00 114 mm[Hg] Step hen F Daniel BP Diastolic 2024-08-22 13:18:00 75 mm[Hg] Remington phen F Daniel Weight Measured 2024-08-22 13:18:00 231.80 pounds Jose C F Daniel Height Measured 2024-08-22 13:18:00 70.00 inches Jose C F Daniel Body Temperature 2024-08-22 13:18:00 97.90 degrees Jose C F Daniel Heart Rate 2024-08-22 13:18:00 86.00 /min Audrey en F Daniel Respiratory Rate 2024-08-22 13:18:00 18.00 /min Jose C F Daniel BP Systolic 2024-07-30 08:51:00 135 mm[Hg] Step hen F Daniel BP Diastolic 2024-07-30 08:51:00 74 mm[Hg] Remington phen F Daniel Weight Measured 2024-07-30 08:51:00 225.20 pounds Jose C F Daniel Height Measured 2024-07-30 08:51:00 70.00 inches Jose C F Dainel Body Temperature 2024-07-30 08:51:00 97.70 degrees Jose C F Daniel Heart Rate 2024-07-30 08:51:00 70.00 /min Audrey en F Daniel Respiratory Rate 2024-07-30 08:51:00 Jose C F Daniel BP Systolic 2024-07-13 09:16:00 107 mm[Hg] Step hen F Daniel BP Diastolic 2024-07-13 09:16:00 69 mm[Hg] Remington phen F Daniel Weight Measured 2024-07-13 09:16:00 231.40 pounds Jose C F Daniel Height Measured 2024-07-13 09:16:00 70.00 inches Jose C F Daniel Body Temperature 2024-07-13 09:16:00 98.20 degrees Jose C F Daniel Heart Rate 2024-07-13 09:16:00 77.00 /min Audrey en F Daniel Respiratory Rate 2024-07-13 09:16:00 Jose C F Daniel BP Systolic 2024-07-13 09:02:00 107 mm[Hg] Step hen F Daniel BP Diastolic 2024-07-13 09:02:00 69 mm[Hg] Remington phen F Daniel Weight Measured 2024-07-13 09:02:00 231.40 pounds Jose C F Daniel Height Measured 2024-07-13 09:02:00 70.00 inches Jose C F Daniel Body Temperature 2024-07-13 09:02:00 98.20 degrees Jose C F Daniel Heart Rate 2024-07-13 09:02:00 77.00 /min Audrey en F Daniel Respiratory Rate 2024-07-13 09:02:00 Jose C F Daniel BP Systolic 2023-07-29 16:00:00 127 mm[Hg] Step hen F Daniel BP Diastolic 2023-07-29 16:00:00 83 mm[Hg] Remington phen F Daniel Weight Measured 2023-07-29 16:00:00 229.80 pounds Jose C F Daniel Height Measured 2023-07-29 16:00:00 70.00 inches Jose C F Daniel Body Temperature 2023-07-29 16:00:00 98.10 degrees Jose [...] Daniel Heart Rate 2022-12-08 10:59:00 74.00 /min Audrey en F Daniel Respiratory Rate 2022-12-08 10:59:00 Jose C F Daniel BP Systolic 2022-07-27 17:14:00 132 mm[Hg] Step hen F Daniel BP Diastolic 2022-07-27 17:14:00 77 mm[Hg] Remington phen F Daniel Weight Measured 2022-07-27 17:14:00 220.80 pounds Jose C F Daniel Height Measured 2022-07-27 17:14:00 70.00 inches Jose C F Daniel Body Temperature 2022-07-27 17:14:00 98.20 degrees Jos Ec F Daniel Heart Rate 2022-07-27 17:14:00 81.00 [...] Measured 2022-05-29 17:28:00 222.00 pounds Jose C Sanchez Height Measured 2022-05-29 17:28:00 70.00 inches Jose C Sanchez Body Temperature 2022-05-29 17:28:00 98.20 degrees Jose C Sanchez Heart Rate 2022-05-29 17:28:00 81.00 /min Audrey en F Daniel Respiratory Rate 2022-05-29 17:28:00 18.00 /min Jose C F Daniel BP Systolic 2022-04-25 16:27:00 134 mm[Hg] Step hen F Daniel BP Diastolic 2022-04-25 16:27:00 90 mm[Hg] Remington phen F Daniel Weight Measured 2022-04-25 16:27:00 223.80 pounds Jose C Sanchez Height Measured 2022-04-25 16:27:00 70.00 inches Jose C Sanchez Body Temperature 2022-04-25 16:27:00 98.40 degrees Jose C Sanchez Heart Rate 2022-04-25 16:27:00 97.00 /min Audrey en F Daniel Respiratory Rate 2022-04-25 16:27:00 18.00 /min Jose C Sanchez Encounters Start Date/Time End Date/Time Encounter Type Ad[facility] Encounter ID Source 2024-08-22 13:11:20 2024-08-22 13:11:20 Outpatient [facility] [id number] Jose C Sanchez 2024-08-22 00:00:00 2024-08-22 00:00:00 Outpatient Visit [facility] [id number] Jose C Sanchez 2024-07-30 08:49:21 2024-07-30 08:49:21 Outpatient [facility] [id number] Jose C Sanchez 2024-07-30 00:00:00 2024-07-30 00:00:00 Outpatient Visit [facility] [id number] Jose C Sanchez 2024-07-30 00:00:00 2024-07-30 00:00:00 OFFICE VISIT ESTAB PT LEVEL 4 STLMLC STLMLC [id number] [facility] 2024-07-29 10:58:44 2024-07-29 10:58:44 Outpatient [facility] S[facility] [id number] Jose C Sanchez 2024-07-13 08:53:45 2024-07-13 08:53:45 Outpatient [facility] SFA [id number] Jose C Sanchez 2024-07-13 00:00:00 2024-07-13 00:00:00 Outpatient Visit S[facility] SFA [id number] Jose C Sanchez 2024-07-13 00:00:00 2024-07-13 00:00:00 Outpatient Visit S[facility] SFA [id number] Jose C Sanchez 2024-07-13 00:00:00 2024-07-13 00:00:00 Outpatient Visit SFA SFA [id number] Jose C Sanchez 2024-07-13 00:00:00 2024-07-13 00:00:00 Outpatient Visit SFA SFA [id number] Jose C Sanchez 2024-07-13 00:00:00 2024-07-13 00:00:00 Outpatient Visit SFA SFA [id number] Jose C Sanchez 2024-07-13 00:00:00 2024-07-13 00:00:00 Outpatient Visit SFA SFA [id number] Jose C Sanchez 2024-07-13 00:00:00 2024-07-13 00:00:00 Outpatient Visit SFA SFA [id number] Jose C Sanchez 2024-07-01 00:00:00 2024-07-01 00:00:00 Outpatient KEMAR CRESPO [id number] Francisca Yousifold 2024-06-03 00:00:00 2024-06-03 00:00:00 Outpatient KEMAR CRESPO FRANCISCA [id number] [facility] 2024-05-07 00:00:00 2024-05-07 00:00:00 Outpatient KEMAR CRESPO FRANCISCA DIAS [id number] [facility] 2024-01-20 16:30:00 2024-01-20 16:30:00 Outpatient TERRY TRACY FRANCISCA DIAS [id number] [facility] 2023-12-14 12:30:00 2023-12-14 12:30:00 Outpatient LILISAJI NEGRETE FRANCISCA DIAS [id number] [facility] 2023-12-14 00:00:00 2023-12-14 00:00:00 Outpatient JENNIFER MANOLO FRANCISCA DIAS [id number] [facility] 2023-11-21 00:00:00 2023-11-21 00:00:00 Outpatient KEMAR CRESPO [facility]ISCA [facility] [id number] [facility] 2023-10-11 11:40:00 2023-10-11 11:40:00 Outpatient MARY FRANCISCA DIAS [id number] [facility] 2023-10-10 08:30:00 2023-10-10 08:30:00 Outpatient OFELIA RODRIGUEZAN FRANCISCA DIAS [id number] [facility] 2023-10-10 00:00:00 2023-10-10 00:00:00 Outpatient MANOLO RODRIGUEZ [id number] [facility] 2023-09-11 16:00:00 2023-09-11 16:00:00 Outpatient MANOLO RODRIGUEZ [id number] [facility] 2023-07-29 15:53:44 2023-07-29 15:53:44 Outpatient SFA SFA [id number] Jose C Sanchez 2023-07-29 00:00:00 2023-07-29 00:00:00 Outpatient Visit [facility] [id number] Jose C Sanchez 2023-05-08 08:31:21 2023-05-08 08:31:21 Outpatient SFA SFA [id number] Jose C Sanchez 2023-05-07 15:59:02 2023-05-07 15:59:02 Outpatient SFA SFA [id number] Jose C Sanchez 2023-01-28 17:07:55 2023-01-28 17:07:55 Outpatient SFA SFA [id number] Jose C Sanchez 2022-12-08 10:55:50 2022-12-08 10:55:50 Outpatient SFA SFA [id number] Jose C Sanchez 2022-07-27 17:03:17 2022-07-27 17:03:17 Outpatient SFA SFA [id number] Jose C Sanchez 2022-07-04 17:21:38 2022-07-04 17:21:38 Outpatient SFA SFA [id number] Jose C Sanchez 2022-06-30 11:09:59 2022-06-30 11:09:59 Outpatient SFA SFA [id number] Jose C Sanchez 2022-06-26 17:19:05 2022-06-26 17:19:05 Outpatient SFA SFA [id number] Jose C Sanchez 2022-06-06 16:00:00 2022-06-06 16:00:00 Outpatient SFA SFA [id number] Jose C Sanchez 2022-05-29 17:21:40 2022-05-29 17:21:40 Outpatient SFA SFA [id number] Jose C Sanchez 2022-04-28 08:57:50 2022-04-28 08:57:50 Outpatient SFA SFA [id number] Jose C Sanchez 2022-04-25 16:20:42 2022-04-25 16:20:42 Outpatient SFA SFA [id number] Jose C Sanchez Results Test Description Test Time Test Comments Results Result Co mments Source TSH, THIRD [id number] 04:26:39* Test Item Value Reference Range Interpretation Comme nts TSH, THIRD GENERATION (test code = 2821) 1.150 UIU/ML 0.400-4.100 LIPID [id number] 04:24:29* Test Item Value Reference Range Interpretation [...] SPECIMENS. FOR MOREINFORMATION, SEE CLIENT ANNOUNCEMENT AT [email or web address] RISK RATIO LDL/HDL (test code = 2238) 2.50 RATIO <3.55 COMPREHENSIVE METABOLIC [id number] 04:24:29* Test Item Value Reference Range Interpretation Comme nts GLUCOSE (test code = 2217) 98 MG/DL 70-99 BUN (test code = 220) 16 MG/DL 6-20 CREATININE (test code = 2214) 1.24 MG/DL 0.80-1.40 eGFR (2020 CKD-EPI) (test co de = 08293) 68 ML/MIN/1.73 >60 CALC BUN/CREAT (test code = 2235) 13 RATIO 6-28 SODIUM (test code = 223) 141 MEQ/L 133-146 POTASSIUM (test code = 2228) 4.5 MEQ/L 3.5-5.4 CHLORIDE (test code = 2215) 104 MEQ/L 95-107 CARBON DIOXIDE (test code = 2206) 24 MEQ/L 19-31 CALCIUM (test code = 2209) 9.8 MG/DL 8.5-10.5 PROTEIN, TOTAL (test code = 222) 7.5 G/DL 6.1-8.3 ALBUMIN (test code = 2201) 4.5 G/DL 3.5-5.2 CALC GLOBULIN (test code = 2240) 3.0 G/DL 1.9-3.7 CALC A/G RATIO (test code = 2234) 1.5 RATIO 1.0-2.6 BILIRUBIN, TOTAL (test code = 2207) 0.4 MG/DL <=1.2 ALKALINE PHOSPHATASE (test code = 2204) 76 U/L 40-123 AST (test code = 2218) 36 U/L 9-50 ALT (test code = 2219) 43 U/L 5-50 HEMOGLOBIN [id number] 03:23:41* Test Item Value Reference Range Interpretation Comme nts HEMOGLOBIN A1c (test code = 83359) 5.8 % 4.2-5.6 H [employer] GUIDELINES FOR HGB A1C: [...] OR LABORATORY CONSULTATION. CBC W/AUTO DIFF WITH [id number] 02:14:20* Test Item Value Reference Range Interpretation [...] = 1065) 0.0 /100 WBC'S See_Comment [Automated [employer] ge] The system which generated this result [...] 0.00-0.10 ABS NUCLEATED RBCS (test code = 41279) 0.00 K/UL 0.00-0.11 VITAMIN D, 25 [id number] 00:00:00* Test Item Value Reference Range Interpretation Comme nts VITAMIN D, 25 OH (test code = 4958) 42 NG/ML [facility] W/AUTO [id number] 00:00:00* Test Item Value Reference Range Interpretation [...] ABS NUCLEATED RBCS (test cod e = 96964) 0.00 K/UL Jose C SanchezHEMOGLOBIN [id number] 00:00:00* Test Item Value Reference Range Interpretation Comme nts HEMOGLOBIN A1c (test code = 81019) 5.8 % Jose C SanchezLIPID [id number] 00:00:00* Test Item Value Reference Range Interpretation Comme nts CHOLESTEROL (test code = 2210) 145 MG/DL TRIGLYCERIDES (test code = 2232) 160 MG/DL HDL CHOLESTEROL (test code = 2220) 34 MG/DL CALC LDL CHOL (test code = 2237) 85 MG/DL RISK RATIO LDL/HDL (test cod e = 2238) 2.50 RATIO Jose C SanchezCOMPREHENSIVE METABOLIC [id number] 00:00:00* Test Item Value Reference Range Interpretation Comme nts GLUCOSE (test code = 2217) 98 MG/DL BUN (test code = 2208) 16 MG/DL CREATININE (test code = 2214) 1.24 MG/DL eGFR (2020 CKD-EPI) (test co de = 15357) 68 ML/MIN/1.73 CALC BUN/CREAT (test code = [...] MG/DL ALKALINE PHOSPHATASE (test code = 2204) 76 U/L AST (test code = 2218) 36 U/L ALT (test code = 2219) 43 U/L Jose C SanchezTSH, THIRD [id number] 00:00:00* Test Item Value Reference Range Interpretation Comme nts TSH, THIRD GENERATION (test code = 2821) 1.150 UIU/ML Jose C SanchezVITAMIN D, 25 [id number] 00:00:00* Test Item Value Reference Range Interpretation Comme nts VITAMIN D, 25 OH (test code = 4958) 42 NG/ML Jose C SanchezCBC W/AUTO [id number] 00:00:00* Test Item Value Reference Range Interpretation [...] ABS NUCLEATED RBCS (test cod e = 25250) 0.00 K/UL Jose C SanchezHEMOGLOBIN [id number] 00:00:00* Test Item Value Reference Range Interpretation Comme nts HEMOGLOBIN A1c (test code = 54079) 5.8 % Jose C SanchezLIPID [id number] 00:00:00* Test Item Value Reference Range Interpretation Comme nts CHOLESTEROL (test code = 2210) 145 MG/DL TRIGLYCERIDES (test code = 2232) 160 MG/DL HDL CHOLESTEROL (test code = 2220) 34 MG/DL CALC LDL CHOL (test code = 2237) 85 MG/DL RISK RATIO LDL/HDL (test cod e = 2238) 2.50 RATIO Jose C SanchezCOMPREHENSIVE METABOLIC [id number] 00:00:00* Test Item Value Reference Range Interpretation Comme nts GLUCOSE (test code = 2217) 98 MG/DL BUN (test code = 2208) 16 MG/DL CREATININE (test code = 2214) 1.24 MG/DL eGFR (2020 CKD-EPI) (test co de = 73272) 68 ML/MIN/1.73 CALC BUN/CREAT (test code = [...] MG/DL ALKALINE PHOSPHATASE (test code = 2204) 76 U/L AST (test code = 2218) 36 U/L ALT (test code = 2219) 43 U/L Jose C SanchezTSH, THIRD [id number] 00:00:00* Test Item Value Reference Range Interpretation Comme [facility] TSH, THIRD GENERATION (test code = 2821) 1.150 UIU/ML Jose C SanchezVITAMIN D, 25 [id number] 00:00:00* Test Item Value Reference Range Interpretation Comme [facility] VITAMIN D, 25 OH (test code = 4958) 42 NG/ML Jose C SanchezCBC W/AUTO [id number] 00:00:00* Test Item Value Reference Range Interpretation [...] ABS NUCLEATED RBCS (test cod e = 92433) 0.00 K/UL Jose C SanchezHEMOGLOBIN [id number] 00:00:00* Test Item Value Reference Range Interpretation Comme nts HEMOGLOBIN A1c (test code = 89196) 5.8 % Jose C Vargas AustinLIPID [id number] 00:00:00* Test Item Value Reference Range Interpretation Comme nts CHOLESTEROL (test code = 2210) 145 MG/DL TRIGLYCERIDES (test code = 2232) 160 MG/DL HDL CHOLESTEROL (test code = 2220) 34 MG/DL CALC LDL CHOL (test code = 2237) 85 MG/DL RISK RATIO LDL/HDL (test cod e = 2238) 2.50 RATIO Jose C Vargas DanielCOMPREHENSIVE METABOLIC [id number] 00:00:00* Test Item Value Reference Range Interpretation Comme nts GLUCOSE (test code = 2217) 98 MG/DL BUN (test code = 220) 16 MG/DL CREATININE (test code = 2214) 1.24 MG/DL eGFR (2020 CKD-EPI) (test co de = 57812) 68 ML/MIN/1.73 CALC BUN/CREAT (test code = 2235) 13 RATIO SODIUM (test code = 223) 141 MEQ/L POTASSIUM (test code = 2228) 4.5 MEQ/L CHLORIDE (test code = 2215) 104 MEQ/L CARBON DIOXIDE (test code = 2206) 24 MEQ/L CALCIUM (test code = 2209) 9.8 MG/DL PROTEIN, TOTAL (test code = 2228) 7.5 G/DL ALBUMIN (test code = 2200) 4.5 G/DL CALC GLOBULIN (test code = 2240) 3.0 G/DL CALC A/G RATIO (test code = 2234) 1.5 RATIO BILIRUBIN, TOTAL (test code = 2206) 0.4 MG/DL ALKALINE PHOSPHATASE (test code = 2203) 76 U/L AST (test code = 2218) 36 U/L ALT (test code = 2219) 43 U/L Jose C SanchezTSH, THIRD [id number] 00:00:00* Test Item Value Reference Range Interpretation Comme [facility] TSH, THIRD GENERATION (test code = 2821) 1.150 UIU/ML Jose C SanchezVITAMIN D, 25 [id number] 00:00:00* Test Item Value Reference Range Interpretation Comme [facility] VITAMIN D, 25 OH (test code = 4958) 42 NG/ML Jose C SanchezCBC W/AUTO [id number] 00:00:00* Test Item Value Reference Range Interpretation Comme [facility] WBC (test code = 1001) 9.0 K/UL [...] ABS NUCLEATED RBCS (test cod e = 45757) 0.00 K/UL Jose C SanchezHEMOGLOBIN [id number] 00:00:00* Test Item Value Reference Range Interpretation Comme nts HEMOGLOBIN A1c (test code = 47155) 5.8 % Jose C SanchezLIPID [id number] 00:00:00* Test Item Value Reference Range Interpretation Comme nts CHOLESTEROL (test code = 2210) 145 MG/DL TRIGLYCERIDES (test code = 2232) 160 MG/DL HDL CHOLESTEROL (test code = 2220) 34 MG/DL CALC LDL CHOL (test code = 2237) 85 MG/DL RISK RATIO LDL/HDL (test cod e = 2238) 2.50 RATIO Jose C SanchezCOMPREHENSIVE METABOLIC [id number] 00:00:00* Test Item Value Reference Range Interpretation Comme nts GLUCOSE (test code = 2217) 98 MG/DL BUN (test code = 2208) 16 MG/DL CREATININE (test code = 2214) 1.24 MG/DL eGFR (2020 CKD-EPI) (test co de = 31473) 68 ML/MIN/1.73 CALC BUN/CREAT (test code = [...] MG/DL ALKALINE PHOSPHATASE (test code = 2204) 76 U/L AST (test code = 2218) 36 U/L ALT (test code = 2219) 43 U/L Jose C SanchezTSH, THIRD [id number] 00:00:00* Test Item Value Reference Range Interpretation Comme nts TSH, THIRD GENERATION (test code = 2821) 1.150 UIU/ML Jose C SanchezVITAMIN D, 25 [id number] 00:00:00* Test Item Value Reference Range Interpretation Comme nts VITAMIN D, 25 OH (test code = 4958) 42 NG/ML Jos eC SanchezCBC W/AUTO [id number] 00:00:00* Test Item Value Reference Range Interpretation [...] ABS NUCLEATED RBCS (test cod e = 28508) 0.00 K/UL Jose C SanchezHEMOGLOBIN [id number] 00:00:00* Test Item Value Reference Range Interpretation Comme nts HEMOGLOBIN A1c (test code = 49775) 5.8 % Jose C SanchezLIPID [id number] 00:00:00* Test Item Value Reference Range Interpretation Comme nts CHOLESTEROL (test code = 2210) 145 MG/DL TRIGLYCERIDES (test code = 2232) 160 MG/DL HDL CHOLESTEROL (test code = 2220) 34 MG/DL CALC LDL CHOL (test code = 2237) 85 MG/DL RISK RATIO LDL/HDL (test cod e = 2238) 2.50 RATIO Jose C SanchezCOMPREHENSIVE METABOLIC [id number] 00:00:00* Test Item Value Reference Range Interpretation Comme nts GLUCOSE (test code = 2217) 98 MG/DL BUN (test code = 2208) 16 MG/DL CREATININE (test code = 2214) 1.24 MG/DL eGFR (2020 CKD-EPI) (test co de = 85535) 68 ML/MIN/1.73 CALC BUN/CREAT (test code = [...] MG/DL ALKALINE PHOSPHATASE (test code = 2204) 76 U/L AST (test code = 2218) 36 U/L ALT (test code = 2219) 43 U/L Jose C SanchezTSH, THIRD [id number] 00:00:00* Test Item Value Reference Range Interpretation Comme nts TSH, THIRD GENERATION (test code = 2821) 1.150 UIU/ML Jose C SanchezVITAMIN D, 25 [id number] 00:00:00* Test Item Value Reference Range Interpretation Comme nts VITAMIN D, 25 OH (test code = 4958) 42 NG/ML Jose C SanchezCBC W/AUTO [id number] 00:00:00* Test Item Value Reference Range Interpretation [...] ABS NUCLEATED RBCS (test cod e = 03830) 0.00 K/UL Jose C SanchezHEMOGLOBIN [id number] 00:00:00* Test Item Value Reference Range Interpretation Comme nts HEMOGLOBIN A1c (test code = 57237) 5.8 % Jose C SanchezLIPID [id number] 00:00:00* Test Item Value Reference Range Interpretation Comme nts CHOLESTEROL (test code = 2210) 145 MG/DL TRIGLYCERIDES (test code = 2232) 160 MG/DL HDL CHOLESTEROL (test code = 2220) 34 MG/DL CALC LDL CHOL (test code = 2237) 85 MG/DL RISK RATIO LDL/HDL (test cod e = 2238) 2.50 RATIO Jose C SanchezCOMPREHENSIVE METABOLIC [id number] 00:00:00* Test Item Value Reference Range Interpretation Comme nts GLUCOSE (test code = 2217) 98 MG/DL BUN (test code = 2208) 16 MG/DL CREATININE (test code = 2214) 1.24 MG/DL eGFR (2020 CKD-EPI) (test co de = 57294) 68 ML/MIN/1.73 CALC BUN/CREAT (test code = [...] MG/DL ALKALINE PHOSPHATASE (test code = 2204) 76 U/L AST (test code = 2218) 36 U/L ALT (test code = 2219) 43 U/L Jose C SanchezTSH, THIRD [id number] 00:00:00* Test Item Value Reference Range Interpretation Comme nts TSH, THIRD GENERATION (test code = 2821) 1.150 UIU/ML Jose C SanchezVITAMIN D, 25 [id number] 00:00:00* Test Item Value Reference Range Interpretation Comme nts VITAMIN D, 25 OH (test code = 4958) 42 NG/ML Jose C SanchezCBC W/AUTO [id number] 00:00:00* Test Item Value Reference Range Interpretation [...] ABS NUCLEATED RBCS (test cod e = 02072) 0.00 K/UL Jose C SanchezHEMOGLOBIN [id number] 00:00:00* Test Item Value Reference Range Interpretation Comme nts HEMOGLOBIN A1c (test code = 35236) 5.8 % Jose C SanchezLIPID [id number] 00:00:00* Test Item Value Reference Range Interpretation Comme nts CHOLESTEROL (test code = 2210) 145 MG/DL TRIGLYCERIDES (test code = 2232) 160 MG/DL HDL CHOLESTEROL (test code = 2220) 34 MG/DL CALC LDL CHOL (test code = 2237) 85 MG/DL RISK RATIO LDL/HDL (test cod e = 2238) 2.50 RATIO Jose C SanchezCOMPREHENSIVE METABOLIC [id number] 00:00:00* Test Item Value Reference Range Interpretation Comme nts GLUCOSE (test code = 2217) 98 MG/DL BUN (test code = 220) 16 MG/DL CREATININE (test code = 2214) 1.24 MG/DL eGFR (2020 CKD-EPI) (test co de = 01192) 68 ML/MIN/1.73 CALC BUN/CREAT (test code = 2235) 13 RATIO SODIUM (test code = 223) 141 MEQ/L POTASSIUM (test code = 2228) 4.5 MEQ/L CHLORIDE (test code = 2215) 104 MEQ/L CARBON DIOXIDE (test code = 2206) 24 MEQ/L CALCIUM (test code = 2209) 9.8 MG/DL PROTEIN, TOTAL (test code = 222) 7.5 G/DL ALBUMIN (test code = 220) 4.5 G/DL CALC GLOBULIN (test code = 2240) 3.0 G/DL CALC A/G RATIO (test code = 2234) 1.5 RATIO BILIRUBIN, TOTAL (test code = 2206) 0.4 MG/DL ALKALINE PHOSPHATASE (test code = 2203) 76 U/L AST (test code = 2217) 36 U/L ALT (test code = 2219) 43 U/L Jose C SanchezTSH, THIRD [id number] 00:00:00* Test Item Value Reference Range Interpretation Comme [facility] TSH, THIRD GENERATION (test code = 2821) 1.150 UIU/ML Jose C Sam DanielVITAMIN D, 25 [id number] 00:00:00* Test Item Value Reference Range Interpretation Comme [facility] VITAMIN D, 25 OH (test code = 4958) 42 NG/ML Jose C Vargas DanielCBC W/AUTO [id number] 00:00:00* Test Item Value Reference Range Interpretation Comme [facility] WBC (test code = 1001) 9.0 K/UL [...] ABS NUCLEATED RBCS (test cod e = 28844) 0.00 K/UL Jose C SanchezHEMOGLOBIN [id number] 00:00:00* Test Item Value Reference Range Interpretation Comme nts HEMOGLOBIN A1c (test code = 75138) 5.8 % Jose C SanchezLIPID [id number] 00:00:00* Test Item Value Reference Range Interpretation Comme nts CHOLESTEROL (test code = 2210) 145 MG/DL TRIGLYCERIDES (test code = 2232) 160 MG/DL HDL CHOLESTEROL (test code = 2220) 34 MG/DL CALC LDL CHOL (test code = 2237) 85 MG/DL RISK RATIO LDL/HDL (test cod e = 2238) 2.50 RATIO Jose C SanchezCOMPREHENSIVE METABOLIC [id number] 00:00:00* Test Item Value Reference Range Interpretation Comme nts GLUCOSE (test code = 2217) 98 MG/DL BUN (test code = 2208) 16 MG/DL CREATININE (test code = 2214) 1.24 MG/DL eGFR (2020 CKD-EPI) (test co de = 79185) 68 ML/MIN/1.73 CALC BUN/CREAT (test code = [...] MG/DL ALKALINE PHOSPHATASE (test code = 2204) 76 U/L AST (test code = 2218) 36 U/L ALT (test code = 2219) 43 U/L Jose C SanchezTSH, THIRD [id number] 00:00:00* Test Item Value Reference Range Interpretation Comme nts TSH, THIRD GENERATION (test code = 2821) 1.150 UIU/ML Jose C SanchezVITAMIN D, 25 [id number] 00:00:00* Test Item Value Reference Range Interpretation Comme nts VITAMIN D, 25 OH (test code = 4958) 42 NG/ML Jose C SanchezCBC W/AUTO [id number] 00:00:00* Test Item Value Reference Range Interpretation [...] ABS NUCLEATED RBCS (test cod e = 18399) 0.00 K/UL Jose C SanchezHEMOGLOBIN [id number] 00:00:00* Test Item Value Reference Range Interpretation Comme nts HEMOGLOBIN A1c (test code = 85016) 5.8 % Jose C SanchezLIPID [id number] 00:00:00* Test Item Value Reference Range Interpretation Comme nts CHOLESTEROL (test code = 2210) 145 MG/DL TRIGLYCERIDES (test code = 2232) 160 MG/DL HDL CHOLESTEROL (test code = 2220) 34 MG/DL CALC LDL CHOL (test code = 2237) 85 MG/DL RISK RATIO LDL/HDL (test cod e = 2238) 2.50 RATIO Jose C Sam DanielCOMPREHENSIVE METABOLIC [id number] 00:00:00* Test Item Value Reference Range Interpretation Comme nts GLUCOSE (test code = 2217) 98 MG/DL BUN (test code = 2208) 16 MG/DL CREATININE (test code = 2214) 1.24 MG/DL eGFR (2020 CKD-EPI) (test co de = 65615) 68 ML/MIN/1.73 CALC BUN/CREAT (test code = [...] MG/DL ALKALINE PHOSPHATASE (test code = 2204) 76 U/L AST (test code = 2218) 36 U/L ALT (test code = 2219) 43 U/L MONTY Madsen [id number] 00:00:00* Test Item Value Reference Range Interpretation Comme nts TSH, THIRD GENERATION (test code = 2821) 1.150 UIU/ML Jose C SanchezVITAMIN D, 25 [id number] 00:00:00* Test Item Value Reference Range Interpretation Comme nts VITAMIN D, 25 OH (test code = 4958) 42 NG/ML Jose C SanchezCBC W/AUTO [id number] 00:00:00* Test Item Value Reference Range Interpretation [...] ABS NUCLEATED RBCS (test cod e = 13554) 0.00 K/UL Jose C SanchezHEMOGLOBIN [id number] 00:00:00* Test Item Value Reference Range Interpretation Comme nts HEMOGLOBIN A1c (test code = 28828) 5.8 % Jose C SanchezLIPID [id number] 00:00:00* Test Item Value Reference Range Interpretation Comme nts CHOLESTEROL (test code = 2210) 145 MG/DL TRIGLYCERIDES (test code = 2232) 160 MG/DL HDL CHOLESTEROL (test code = 2220) 34 MG/DL CALC LDL CHOL (test code = 2237) 85 MG/DL RISK RATIO LDL/HDL (test cod e = 2238) 2.50 RATIO Jose C SanchezCOMPREHENSIVE METABOLIC [id number] 00:00:00* Test Item Value Reference Range Interpretation Comme nts GLUCOSE (test code = 2217) 98 MG/DL BUN (test code = 2208) 16 MG/DL CREATININE (test code = 2214) 1.24 MG/DL eGFR (2020 CKD-EPI) (test co de = 61699) 68 ML/MIN/1.73 CALC BUN/CREAT (test code = [...] MG/DL ALKALINE PHOSPHATASE (test code = 2204) 76 U/L AST (test code = 2218) 36 U/L ALT (test code = 2219) 43 U/L Jose C SanchezTSH, THIRD [id number] 00:00:00* Test Item Value Reference Range Interpretation Comme nts TSH, THIRD GENERATION (test code = 2821) 1.150 UIU/ML Jose C SanchezLIPID [id number] 03:52:10* Test Item Value Reference Range Interpretation [...] SPECIMENS. FOR MOREINFORMATION, SEE CLIENT ANNOUNCEMENT AT [email or web address] RISK RATIO LDL/HDL (test code = 2237) 2.06 RATIO <3.55 COMPREHENSIVE METABOLIC [id number] 03:52:10* Test Item Value Reference Range Interpretation Comme nts GLUCOSE (test code = 2216) 137 MG/DL 70-99 H BUN (test code = 2207) 16 MG/DL 6-20 CREATININE (test code = 2213) 1.27 MG/DL 0.80-1.40 eGFR (2020 CKD-EPI) (test code = 97039) 66 ML/MIN/1.73 >60 CALC BUN/CREAT (test code = 2234) 13 RATIO 6-28 SODIUM (test code = 2230) 143 MEQ/L 133-146 POTASSIUM (test code = 2228) 4.6 MEQ/L 3.5-5.4 CHLORIDE (test code = 2215) 107 MEQ/L 95-107 CARBON DIOXIDE (test code = 2205) 25 MEQ/L 19-31 CALCIUM (test code = 2209) 9.5 MG/DL 8.5-10.5 PROTEIN, TOTAL (test code = 2228) 7.0 G/DL 6.1-8.3 ALBUMIN (test code = 220) 4.3 G/DL 3.5-5.2 CALC GLOBULIN (test code = 2240) 2.7 G/DL 1.9-3.7 CALC A/G RATIO (test code = 2234) 1.6 RATIO 1.0-2.6 BILIRUBIN, TOTAL (test code = 220) 0.4 MG/DL See_Comment [Automated me ssage] The system which generated this result transmitted reference range: <=1.2. The reference range was not used to interpret this result as normal/abnormal. ALKALINE PHOSPHATASE (test code = 4) 66 U/L 40-123 AST (test code = 2218) 39 U/L 9-50 ALT (test code = 2219) 42 U/L 5-50 UNLESS OTHERWISE INDICATED, ALL TESTING PERFORMED AT [facility] [address] [place] [id number] PHYSICAL THERAPY AIDES TEACHER: TANGELA BANGURA M.D. [place] NUMBER [id number] [facility] [place]. [id number] HEMOGLOBIN [id number] 03:17:16* Test Item Value Reference Range Interpretation Comme nts HEMOGLOBIN A1c (test code = 62752) 5.7 % 4.2-5.6 H [employer] GUIDELINES FOR HGB A1C: [...] OR LABORATORY CONSULTATION. CBC W/AUTO DIFF WITH [id number] 02:32:30* Test Item Value Reference Range Interpretation [...] = 1065) 0.0 /100 WBC'S See_Comment [Automated [employer] ge] The system which generated this result [...] 0.00-0.10 ABS NUCLEATED RBCS (test code = 25922) 0.00 K/UL 0.00-0.11 CBC W/AUTO [id number] 00:00:00* Test Item Value Reference Range Interpretation [...] ABS NUCLEATED RBCS (test cod e = 31696) 0.00 K/UL Jose C SanchezHEMOGLOBIN [id number] 00:00:00* Test Item Value Reference Range Interpretation Comme nts HEMOGLOBIN A1c (test code = 00058) 5.7 % Jose C SanchezLIPID [id number] 00:00:00* Test Item Value Reference Range Interpretation Comme nts CHOLESTEROL (test code = 2210) 125 MG/DL TRIGLYCERIDES (test code = 2232) 241 MG/DL HDL CHOLESTEROL (test code = 2220) 31 MG/DL CALC LDL CHOL (test code = 2237) 64 MG/DL RISK RATIO LDL/HDL (test cod e = 2238) 2.06 RATIO Jose C SanchezCOMPREHENSIVE METABOLIC [id number] 00:00:00* Test Item Value Reference Range Interpretation Comme nts GLUCOSE (test code = 2217) 137 MG/DL BUN (test code = 2208) 16 MG/DL CREATININE (test code = 2214) 1.27 MG/DL eGFR (2020 CKD-EPI) (test co de = 51355) 66 ML/MIN/1.73 CALC BUN/CREAT (test code = [...] code = 2219) 42 U/L Jose C SanchezCBC W/AUTO [id number] 00:00:00* Test Item Value Reference Range Interpretation [...] ABS NUCLEATED RBCS (test cod e = 77981) 0.00 K/UL Jose C SanchezHEMOGLOBIN [id number] 00:00:00* Test Item Value Reference Range Interpretation Comme nts HEMOGLOBIN A1c (test code = 23323) 5.7 % Jose C Vargas AustinLIPID [id number] 00:00:00* Test Item Value Reference Range Interpretation Comme nts CHOLESTEROL (test code = 2210) 125 MG/DL TRIGLYCERIDES (test code = 2232) 241 MG/DL HDL CHOLESTEROL (test code = 2220) 31 MG/DL CALC LDL CHOL (test code = 2237) 64 MG/DL RISK RATIO LDL/HDL (test cod e = 2238) 2.06 RATIO Jose C SanchezCOMPREHENSIVE METABOLIC [id number] 00:00:00* Test Item Value Reference Range Interpretation Comme nts GLUCOSE (test code = 2217) 137 MG/DL BUN (test code = 2208) 16 MG/DL CREATININE (test code = 2214) 1.27 MG/DL eGFR (2020 CKD-EPI) (test co de = 58438) 66 ML/MIN/1.73 CALC BUN/CREAT (test code = [...] code = 2219) 42 U/L Jose C F [facility] W/AUTO [id number] 00:00:00* Test Item Value Reference Range Interpretation [...] ABS NUCLEATED RBCS (test cod e = 15830) 0.00 K/UL Jose C SanchezHEMOGLOBIN [id number] 00:00:00* Test Item Value Reference Range Interpretation Comme nts HEMOGLOBIN A1c (test code = 45408) 5.7 % Jose C SanchezLIPID [id number] 00:00:00* Test Item Value Reference Range Interpretation Comme nts CHOLESTEROL (test code = 2210) 125 MG/DL TRIGLYCERIDES (test code = 2232) 241 MG/DL HDL CHOLESTEROL (test code = 2220) 31 MG/DL CALC LDL CHOL (test code = 2237) 64 MG/DL RISK RATIO LDL/HDL (test cod e = 2238) 2.06 RATIO Jose C SanchezCOMPREHENSIVE METABOLIC [id number] 00:00:00* Test Item Value Reference Range Interpretation Comme nts GLUCOSE (test code = 2217) 137 MG/DL BUN (test code = 2208) 16 MG/DL CREATININE (test code = 2214) 1.27 MG/DL eGFR (2020 CKD-EPI) (test co de = 05859) 66 ML/MIN/1.73 CALC BUN/CREAT (test code = [...] code = 2219) 42 U/L Jose C SanchezCBC W/AUTO [id number] 00:00:00* Test Item Value Reference Range Interpretation [...] ABS NUCLEATED RBCS (test cod e = 97469) 0.00 K/UL Jose C SanchezHEMOGLOBIN [id number] 00:00:00* Test Item Value Reference Range Interpretation Comme nts HEMOGLOBIN A1c (test code = 15347) 5.7 % Jose C SanchezLIPID [id number] 00:00:00* Test Item Value Reference Range Interpretation Comme nts CHOLESTEROL (test code = 2210) 125 MG/DL TRIGLYCERIDES (test code = 2232) 241 MG/DL HDL CHOLESTEROL (test code = 2220) 31 MG/DL CALC LDL CHOL (test code = 2237) 64 MG/DL RISK RATIO LDL/HDL (test cod e = 2238) 2.06 RATIO Jose C SanchezCOMPREHENSIVE METABOLIC [id number] 00:00:00* Test Item Value Reference Range Interpretation Comme nts GLUCOSE (test code = 2217) 137 MG/DL BUN (test code = 2208) 16 MG/DL CREATININE (test code = 2214) 1.27 MG/DL eGFR (2020 CKD-EPI) (test co de = 34607) 66 ML/MIN/1.73 CALC BUN/CREAT (test code = [...] code = 2219) 42 U/L Jose C SanchezCBC W/AUTO [id number] 00:00:00* Test Item Value Reference Range Interpretation [...] ABS NUCLEATED RBCS (test cod e = 40285) 0.00 K/UL Jose C SanchezHEMOGLOBIN [id number] 00:00:00* Test Item Value Reference Range Interpretation Comme nts HEMOGLOBIN A1c (test code = 74369) 5.7 % Jose C SanchezLIPID [id number] 00:00:00* Test Item Value Reference Range Interpretation Comme nts CHOLESTEROL (test code = 2210) 125 MG/DL TRIGLYCERIDES (test code = 2232) 241 MG/DL HDL CHOLESTEROL (test code = 2220) 31 MG/DL CALC LDL CHOL (test code = 2237) 64 MG/DL RISK RATIO LDL/HDL (test cod e = 2238) 2.06 RATIO Jose C SanchezCOMPREHENSIVE METABOLIC [id number] 00:00:00* Test Item Value Reference Range Interpretation Comme nts GLUCOSE (test code = 2217) 137 MG/DL BUN (test code = 2208) 16 MG/DL CREATININE (test code = 2214) 1.27 MG/DL eGFR (2020 CKD-EPI) (test co de = 83881) 66 ML/MIN/1.73 CALC BUN/CREAT (test code = [...] code = 2219) 42 U/L Jose C SanchezCBC W/AUTO [id number] 00:00:00* Test Item Value Reference Range Interpretation [...] ABS NUCLEATED RBCS (test cod e = 93348) 0.00 K/UL Jose C SanchezHEMOGLOBIN [id number] 00:00:00* Test Item Value Reference Range Interpretation Comme nts HEMOGLOBIN A1c (test code = 49824) 5.7 % Jose C SanchezLIPID [id number] 00:00:00* Test Item Value Reference Range Interpretation Comme nts CHOLESTEROL (test code = 2210) 125 MG/DL TRIGLYCERIDES (test code = 2232) 241 MG/DL HDL CHOLESTEROL (test code = 2220) 31 MG/DL CALC LDL CHOL (test code = 2237) 64 MG/DL RISK RATIO LDL/HDL (test cod e = 2238) 2.06 RATIO Jose C SanchezCOMPREHENSIVE METABOLIC [id number] 00:00:00* Test Item Value Reference Range Interpretation Comme nts GLUCOSE (test code = 2217) 137 MG/DL BUN (test code = 2208) 16 MG/DL CREATININE (test code = 2214) 1.27 MG/DL eGFR (2020 CKD-EPI) (test co de = 02205) 66 ML/MIN/1.73 CALC BUN/CREAT (test code = [...] code = 2219) 42 U/L Jose C SanchezCBC W/AUTO [id number] 00:00:00* Test Item Value Reference Range Interpretation [...] ABS NUCLEATED RBCS (test cod e = 57020) 0.00 K/UL Jose C SanchezHEMOGLOBIN [id number] 00:00:00* Test Item Value Reference Range Interpretation Comme nts HEMOGLOBIN A1c (test code = 74052) 5.7 % Jose C SanchezLIPID [id number] 00:00:00* Test Item Value Reference Range Interpretation Comme nts CHOLESTEROL (test code = 2210) 125 MG/DL TRIGLYCERIDES (test code = 2232) 241 MG/DL HDL CHOLESTEROL (test code = 2220) 31 MG/DL CALC LDL CHOL (test code = 2237) 64 MG/DL RISK RATIO LDL/HDL (test cod e = 2238) 2.06 RATIO Jose C SanchezCOMPREHENSIVE METABOLIC [id number] 00:00:00* Test Item Value Reference Range Interpretation Comme nts GLUCOSE (test code = 2217) 137 MG/DL BUN (test code = 2208) 16 MG/DL CREATININE (test code = 2214) 1.27 MG/DL eGFR (2020 CKD-EPI) (test co de = 77431) 66 ML/MIN/1.73 CALC BUN/CREAT (test code = [...] code = 2219) 42 U/L Jose C Vargas DanielCBC W/AUTO [id number] 00:00:00* Test Item Value Reference Range Interpretation [...] ABS NUCLEATED RBCS (test cod e = 90298) 0.00 K/UL Jose C Vargas DainelHEMOGLOBIN [id number] 00:00:00* Test Item Value Reference Range Interpretation Comme nts HEMOGLOBIN A1c (test code = 51723) 5.7 % Jose C SanchezLIPID [id number] 00:00:00* Test Item Value Reference Range Interpretation Comme nts CHOLESTEROL (test code = 2210) 125 MG/DL TRIGLYCERIDES (test code = 2232) 241 MG/DL HDL CHOLESTEROL (test code = 2220) 31 MG/DL CALC LDL CHOL (test code = 2237) 64 MG/DL RISK RATIO LDL/HDL (test cod e = 2238) 2.06 RATIO Jose C SanchezCOMPREHENSIVE METABOLIC [id number] 00:00:00* Test Item Value Reference Range Interpretation Comme nts GLUCOSE (test code = 2217) 137 MG/DL BUN (test code = 2208) 16 MG/DL CREATININE (test code = 2214) 1.27 MG/DL eGFR (2020 CKD-EPI) (test co de = 32239) 66 ML/MIN/1.73 CALC BUN/CREAT (test code = [...] code = 2219) 42 U/L Jose C SanchezCBC W/AUTO [id number] 00:00:00* Test Item Value Reference Range Interpretation [...] ABS NUCLEATED RBCS (test cod e = 19089) 0.00 K/UL Jose C SanchezHEMOGLOBIN [id number] 00:00:00* Test Item Value Reference Range Interpretation Comme nts HEMOGLOBIN A1c (test code = 21350) 5.7 % Jose C SanchezLIPID [id number] 00:00:00* Test Item Value Reference Range Interpretation Comme nts CHOLESTEROL (test code = 2210) 125 MG/DL TRIGLYCERIDES (test code = 2232) 241 MG/DL HDL CHOLESTEROL (test code = 2220) 31 MG/DL CALC LDL CHOL (test code = 2237) 64 MG/DL RISK RATIO LDL/HDL (test cod e = 2238) 2.06 RATIO Jose C SanchezCOMPREHENSIVE METABOLIC [id number] 00:00:00* Test Item Value Reference Range Interpretation Comme nts GLUCOSE (test code = 2217) 137 MG/DL BUN (test code = 2208) 16 MG/DL CREATININE (test code = 2214) 1.27 MG/DL eGFR (2020 CKD-EPI) (test co de = 10687) 66 ML/MIN/1.73 CALC BUN/CREAT (test code = [...] code = 2219) 42 U/L Jose C Vargas [facility] W/AUTO [id number] 00:00:00* Test Item Value Reference Range Interpretation [...] ABS NUCLEATED RBCS (test cod e = 43402) 0.00 K/UL Jose C SanchezHEMOGLOBIN [id number] 00:00:00* Test Item Value Reference Range Interpretation Comme nts HEMOGLOBIN A1c (test code = 90963) 5.7 % Jose C SanchezLIPID [id number] 00:00:00* Test Item Value Reference Range Interpretation Comme nts CHOLESTEROL (test code = 2210) 125 MG/DL TRIGLYCERIDES (test code = 2232) 241 MG/DL HDL CHOLESTEROL (test code = 2220) 31 MG/DL CALC LDL CHOL (test code = 2237) 64 MG/DL RISK RATIO LDL/HDL (test cod e = 2238) 2.06 RATIO Jose C SanchezCOMPREHENSIVE METABOLIC [id number] 00:00:00* Test Item Value Reference Range Interpretation Comme nts GLUCOSE (test code = 2217) 137 MG/DL BUN (test code = 2208) 16 MG/DL CREATININE (test code = 2214) 1.27 MG/DL eGFR (2020 CKD-EPI) (test co de = 22737) 66 ML/MIN/1.73 CALC BUN/CREAT (test code = [...] 2219) 42 U/L Jose C SanchezCOMPREHENSIVE METABOLIC [id number] 01:29:48* Test Item Value Reference Range Interpretation Comme nts GLUCOSE (test code = 2216) 116 MG/DL 70-99 H BUN (test code = 2207) 13 MG/DL 6-20 CREATININE (test code = 2213) 1.28 MG/DL 0.80-1.40 eGFR (2020 CKD-EPI) (test code = 39869) 66 ML/MIN/1.73 >60 CALC BUN/CREAT (test code = 2235) 10 RATIO 6-28 SODIUM (test code = 223) 144 MEQ/L 133-146 POTASSIUM (test code = 2228) 4.8 MEQ/L 3.5-5.4 CHLORIDE (test code = 2214) 105 MEQ/L 95-107 CARBON DIOXIDE (test code = 2205) 25 MEQ/L 19-31 CALCIUM (test code = 220) 9.8 MG/DL 8.5-10.5 PROTEIN, TOTAL (test code = 2228) 7.3 G/DL 6.1-8.3 ALBUMIN (test code = 2200) 4.4 G/DL 3.5-5.2 CALC GLOBULIN (test code = 2240) 2.9 G/DL 1.9-3.7 CALC A/G RATIO (test code = 2233) 1.5 RATIO 1.0-2.6 BILIRUBIN, TOTAL (test code = 2206) 0.4 MG/DL See_Comment [Automated me ssage] The system which generated this result transmitted reference range: <=1.2. The reference range was not used to interpret this result as normal/abnormal. ALKALINE PHOSPHATASE (test code = 2203) 89 U/L 40-123 AST (test code = 2218) 40 U/L 9-50 ALT (test code = 2219) 45 U/L 5-50 [facility] has impo rtant pathology staff changes effective 06/13/2022. New pathology staff will provide uninterrupted, excellent patient care and clinical consultation. See URL: [email or web address]. UNLESS OTHERWISE INDICATED, ALL TESTING PERFORMED AT [facility] [address] [place] [id number] PHYSICAL THERAPY AIDES TEACHER: TANGELA BANGURA M.D. CLIA NUMBER [id number] [facility] [place]. [id number] COMPREHENSIVE METABOLIC [id number] 00:00:00* Test Item Value Reference Range Interpretation Comme nts GLUCOSE (test code = 2217) 116 MG/DL BUN (test code = 2208) 13 MG/DL CREATININE (test code = 2214) 1.28 MG/DL eGFR (2020 CKD-EPI) (test co de = 03908) 66 ML/MIN/1.73 CALC BUN/CREAT (test code = [...] code = 2219) 45 U/L Jose C SanchezCOMPREHENSIVE METABOLIC [id number] 00:00:00* Test Item Value Reference Range Interpretation Comme nts GLUCOSE (test code = 2217) 116 MG/DL BUN (test code = 2208) 13 MG/DL CREATININE (test code = 2214) 1.28 MG/DL eGFR (2020 CKD-EPI) (test co de = 79161) 66 ML/MIN/1.73 CALC BUN/CREAT (test code = [...] code = 2219) 45 U/L Jose C [facility]argas [facility] [id number] 00:00:00* Test Item Value Reference Range Interpretation Comme nts GLUCOSE (test code = 2217) 116 MG/DL BUN (test code = 2208) 13 MG/DL CREATININE (test code = 2214) 1.28 MG/DL eGFR (2020 CKD-EPI) (test co de = 26390) 66 ML/MIN/1.73 CALC BUN/CREAT (test code = [...] code = 2219) 45 U/L Jose C Vargas [place] [id number] 00:00:00* Test Item Value Reference Range Interpretation Comme nts GLUCOSE (test code = 2217) 116 MG/DL BUN (test code = 2208) 13 MG/DL CREATININE (test code = 2214) 1.28 MG/DL eGFR (2020 CKD-EPI) (test co de = 20942) 66 ML/MIN/1.73 CALC BUN/CREAT (test code = [...] code = 2219) 45 U/L Jose C Vargas [place] [id number] 00:00:00* Test Item Value Reference Range Interpretation Comme nts GLUCOSE (test code = 2217) 116 MG/DL BUN (test code = 2208) 13 MG/DL CREATININE (test code = 2214) 1.28 MG/DL eGFR (2020 CKD-EPI) (test co de = 99229) 66 ML/MIN/1.73 CALC BUN/CREAT (test code = [...] code = 2219) 45 U/L Jose C Vargas [place] [id number] 00:00:00* Test Item Value Reference Range Interpretation Comme nts GLUCOSE (test code = 2217) 116 MG/DL BUN (test code = 2208) 13 MG/DL CREATININE (test code = 2214) 1.28 MG/DL eGFR (2020 CKD-EPI) (test co de = 89821) 66 ML/MIN/1.73 CALC BUN/CREAT (test code = [...] code = 2219) 45 U/L Jose C [facility]argas [facility] [id number] 00:00:00* Test Item Value Reference Range Interpretation Comme nts GLUCOSE (test code = 2217) 116 MG/DL BUN (test code = 2208) 13 MG/DL CREATININE (test code = 2214) 1.28 MG/DL eGFR (2020 CKD-EPI) (test co de = 93526) 66 ML/MIN/1.73 CALC BUN/CREAT (test code = [...] code = 2219) 45 U/L Jose C F AustinCOMPREHENSIVE METABOLIC [id number] 00:00:00* Test Item Value Reference Range Interpretation Comme nts GLUCOSE (test code = 2217) 116 MG/DL BUN (test code = 2208) 13 MG/DL CREATININE (test code = 2214) 1.28 MG/DL eGFR (2020 CKD-EPI) (test co de = 41656) 66 ML/MIN/1.73 CALC BUN/CREAT (test code = [...] code = 2219) 45 U/L Jose C Vargas [facility] [id number] 00:00:00* Test Item Value Reference Range Interpretation Comme nts GLUCOSE (test code = 2217) 116 MG/DL BUN (test code = 2208) 13 MG/DL CREATININE (test code = 2214) 1.28 MG/DL eGFR (2020 CKD-EPI) (test co de = 11214) 66 ML/MIN/1.73 CALC BUN/CREAT (test code = [...] code = 2219) 45 U/L Jose C SanchezCOMPREHENSIVE METABOLIC [id number] 00:00:00* Test Item Value Reference Range Interpretation Comme nts GLUCOSE (test code = 2217) 116 MG/DL BUN (test code = 2208) 13 MG/DL CREATININE (test code = 2214) 1.28 MG/DL eGFR (2020 CKD-EPI) (test co de = 80818) 66 ML/MIN/1.73 CALC BUN/CREAT (test code = [...] Jose C SanchezHIV 1/2 4TH GEN, RFLX [id number] 03:14:07* Test Item Value Reference Range Interpretation Comme nts HIV 1/2 4TH GEN, RFLX CONF ( test code = 3514) NON-REACTIVE NON-REACTIVE HIV 1/2 4TH GEN, RFLX [id number] 00:00:00* Test Item Value Reference Range Interpretation Comme nts HIV 1/2 4TH GEN, RFLX CONF ( test code = 3514) NON-REACTIVE Jose C SanchezHIV 1/2 4TH GEN, RFLX [id number] 00:00:00* Test Item Value Reference Range Interpretation Comme nts HIV 1/2 4TH GEN, RFLX CONF ( test code = 3514) NON-REACTIVE Jose C F AustinHIV 1/2 4TH GEN, RFLX [id number] 00:00:00* Test Item Value Reference Range Interpretation Comme nts HIV 1/2 4TH GEN, RFLX CONF ( test code = 3514) NON-REACTIVE Jose C F AustinHIV 1/2 4TH GEN, RFLX [id number] 00:00:00* Test Item Value Reference Range Interpretation Comme nts HIV 1/2 4TH GEN, RFLX CONF ( test code = 3514) NON-REACTIVE Jose C F AustinHIV 1/2 4TH GEN, RFLX [id number] 00:00:00* Test Item Value Reference Range Interpretation Comme nts HIV 1/2 4TH GEN, RFLX CONF ( test code = 3514) NON-REACTIVE Jose C F AustinHIV 1/2 4TH GEN, RFLX [id number] 00:00:00* Test Item Value Reference Range Interpretation Comme nts HIV 1/2 4TH GEN, RFLX CONF ( test code = 3514) NON-REACTIVE Jose C F AustinHIV 1/2 4TH GEN, RFLX [id number] 00:00:00* Test Item Value Reference Range Interpretation Comme nts HIV 1/2 4TH GEN, RFLX CONF ( test code = 3514) NON-REACTIVE Jose C F AustinHIV 1/2 4TH GEN, RFLX [id number] 00:00:00* Test Item Value Reference Range Interpretation Comme nts HIV 1/2 4TH GEN, RFLX CONF ( test code = 3514) NON-REACTIVE Jose C F AustinHIV 1/2 4TH GEN, RFLX [id number] 00:00:00* Test Item Value Reference Range Interpretation Comme nts HIV 1/2 4TH GEN, RFLX CONF ( test code = 3514) NON-REACTIVE Jose C F AustinHIV 1/2 4TH GEN, RFLX [id number] 00:00:00* Test Item Value Reference Range Interpretation Comme nts HIV 1/2 4TH GEN, RFLX CONF ( test code = 3514) NON-REACTIVE Jose C F [id number] 23:35:03* Test Item Value Reference Range Interpretation Comme nts RPR RESULT (test code = 3501) NON-REACTIVE NON-REACTIVE RPR TITER (test code = 3500) NOT INDIC. TITER NOT INDIC. CT/NG, NAAT, [id number] 18:07:47* Test Item Value Reference Range Interpretation Comme nts GONORRHEA, NAAT (test code = 78968) NEGATIVE NEGATIVE Testing is perfo rmed with [employer] 6800/8800 systems usingreal-time polymerase chain reaction (PCR) method. A negative result does not exclude low level infection, specimensampling error, or collection error. CHLAMYDIA, NAAT (test code = 03104) NEGATIVE NEGATIVE Testing is perfo rmed with [employer] 6800/8800 systems usingreal-time polymerase chain reaction (PCR) method. A negative result does not exclude low level infection, specimensampling error, or collection error. LIPID [id number] 01:59:34* Test Item Value Reference Range Interpretation [...] SPECIMENS. FOR MOREINFORMATION, SEE CLIENT ANNOUNCEMENT AT [email or web address] RISK RATIO LDL/HDL (test code = 2238) 3.21 RATIO <3.55 PSA, [id number] 01:22:04* Test Item Value Reference Range Interpretation Comme nts PSA, TOTAL (test code = 2606) 0.99 NG/ML See_Comment NOTE: Methodolog y is [employer] Electrochemiluminescence Immunoassay traceable to WHO reference standard 96/760. [Automated message] The system which generated this result transmitted reference range: <=4.00. The reference range was not used to interpret this result as normal/abnormal. [id number] 00:00:00* Test Item Value Reference Range Interpretation Comme nts RPR RESULT (test code = 3501) NON-REACTIVE RPR TITER (test code = 3500) NOT INDIC. TITER Jose C Vargas AustinCT/NG, TMA, [id number] 00:00:00* Test Item Value Reference Range Interpretation Comme nts GONORRHEA, NAAT (test code = 76404) NEGATIVE CHLAMYDIA, NAAT (test code = 29761) NEGATIVE Jose C SanchezPSA, [id number] 00:00:00* Test Item Value Reference Range Interpretation Comme nts PSA, TOTAL (test code = 2606) 0.99 NG/ML Jose C SanchezLIPID [id number] 00:00:00* Test Item Value Reference Range Interpretation Comme nts CHOLESTEROL (test code = 2210) 172 MG/DL TRIGLYCERIDES (test code = 2232) 169 MG/DL HDL CHOLESTEROL (test code = 2220) 34 MG/DL CALC LDL CHOL (test code = 2237) 109 MG/DL RISK RATIO LDL/HDL (test cod e = 2238) 3.21 RATIO Jose C [id number] 00:00:00* Test Item Value Reference Range Interpretation Comme nts RPR RESULT (test code = 3501) NON-REACTIVE RPR TITER (test code = 3500) NOT INDIC. TITER Jose C Vargas AustinCT/NG, TMA, [id number] 00:00:00* Test Item Value Reference Range Interpretation Comme nts GONORRHEA, NAAT (test code = 02439) NEGATIVE CHLAMYDIA, NAAT (test code = 27925) NEGATIVE Jose C SanchezPSA, [id number] 00:00:00* Test Item Value Reference Range Interpretation Comme nts PSA, TOTAL (test code = 2606) 0.99 NG/ML Jose C SanchezLIPID [id number] 00:00:00* Test Item Value Reference Range Interpretation Comme nts CHOLESTEROL (test code = 2210) 172 MG/DL TRIGLYCERIDES (test code = 2232) 169 MG/DL HDL CHOLESTEROL (test code = 2220) 34 MG/DL CALC LDL CHOL (test code = 2237) 109 MG/DL RISK RATIO LDL/HDL (test cod e = 2238) 3.21 RATIO Jose C Vargas [id number] 00:00:00* Test Item Value Reference Range Interpretation Comme nts RPR RESULT (test code = 3501) NON-REACTIVE RPR TITER (test code = 3500) NOT INDIC. TITER Jose C Vargas [place]CT/NG, TMA, [id number] 00:00:00* Test Item Value Reference Range Interpretation Comme nts GONORRHEA, NAAT (test code = 89751) NEGATIVE CHLAMYDIA, NAAT (test code = 08591) NEGATIVE Jose C SanchezPSA, [id number] 00:00:00* Test Item Value Reference Range Interpretation Comme nts PSA, TOTAL (test code = 2606) 0.99 NG/ML Jose C Vargas AustinLIPID [id number] 00:00:00* Test Item Value Reference Range Interpretation Comme nts CHOLESTEROL (test code = 2210) 172 MG/DL TRIGLYCERIDES (test code = 2232) 169 MG/DL HDL CHOLESTEROL (test code = 2220) 34 MG/DL CALC LDL CHOL (test code = 2237) 109 MG/DL RISK RATIO LDL/HDL (test cod e = 2238) 3.21 RATIO Jose C [id number] 00:00:00* Test Item Value Reference Range Interpretation Comme nts RPR RESULT (test code = 3501) NON-REACTIVE RPR TITER (test code = 3500) NOT INDIC. TITER Jose C Vargas AustinCT/NG, TMA, [id number] 00:00:00* Test Item Value Reference Range Interpretation Comme nts GONORRHEA, NAAT (test code = 62157) NEGATIVE CHLAMYDIA, NAAT (test code = 07242) NEGATIVE Jose C SanchezPSA, [id number] 00:00:00* Test Item Value Reference Range Interpretation Comme nts PSA, TOTAL (test code = 2606) 0.99 NG/ML Jose C SanchezLIPID [id number] 00:00:00* Test Item Value Reference Range Interpretation Comme nts CHOLESTEROL (test code = 2210) 172 MG/DL TRIGLYCERIDES (test code = 2232) 169 MG/DL HDL CHOLESTEROL (test code = 2220) 34 MG/DL CALC LDL CHOL (test code = 2237) 109 MG/DL RISK RATIO LDL/HDL (test cod e = 2238) 3.21 RATIO Jose C Vargas [id number] 00:00:00* Test Item Value Reference Range Interpretation Comme nts RPR RESULT (test code = 3501) NON-REACTIVE RPR TITER (test code = 3500) NOT INDIC. TITER Jose C Vargas [place]CT/NG, TMA, [id number] 00:00:00* Test Item Value Reference Range Interpretation Comme nts GONORRHEA, NAAT (test code = 94207) NEGATIVE CHLAMYDIA, NAAT (test code = 28854) NEGATIVE Joes C SanchezPSA, [id number] 00:00:00* Test Item Value Reference Range Interpretation Comme nts PSA, TOTAL (test code = 2606) 0.99 NG/ML Jose C SanchezLIPID [id number] 00:00:00* Test Item Value Reference Range Interpretation Comme nts CHOLESTEROL (test code = 2210) 172 MG/DL TRIGLYCERIDES (test code = 2232) 169 MG/DL HDL CHOLESTEROL (test code = 2220) 34 MG/DL CALC LDL CHOL (test code = 2237) 109 MG/DL RISK RATIO LDL/HDL (test cod e = 2238) 3.21 RATIO Jose C [id number] 00:00:00* Test Item Value Reference Range Interpretation Comme nts RPR RESULT (test code = 3501) NON-REACTIVE RPR TITER (test code = 3500) NOT INDIC. TITER Jose C SanchezCT/NG, TMA, [id number] 00:00:00* Test Item Value Reference Range Interpretation Comme nts GONORRHEA, NAAT (test code = 09941) NEGATIVE CHLAMYDIA, NAAT (test code = 71224) NEGATIVE Jose C SanchezPSA, [id number] 00:00:00* Test Item Value Reference Range Interpretation Comme nts PSA, TOTAL (test code = 2606) 0.99 NG/ML Jose C SanchezLIPID [id number] 00:00:00* Test Item Value Reference Range Interpretation Comme nts CHOLESTEROL (test code = 2210) 172 MG/DL TRIGLYCERIDES (test code = 2232) 169 MG/DL HDL CHOLESTEROL (test code = 2220) 34 MG/DL CALC LDL CHOL (test code = 2237) 109 MG/DL RISK RATIO LDL/HDL (test cod e = 2238) 3.21 RATIO Jose C Vargas [id number] 00:00:00* Test Item Value Reference Range Interpretation Comme nts RPR RESULT (test code = 3501) NON-REACTIVE RPR TITER (test code = 3500) NOT INDIC. TITER Jose C Vargas [place]CT/NG, TMA, [id number] 00:00:00* Test Item Value Reference Range Interpretation Comme nts GONORRHEA, NAAT (test code = 71332) NEGATIVE CHLAMYDIA, NAAT (test code = 61840) NEGATIVE Jose C SanchezPSA, [id number] 00:00:00* Test Item Value Reference Range Interpretation Comme nts PSA, TOTAL (test code = 2606) 0.99 NG/ML Jose C SanchzeLIPID [id number] 00:00:00* Test Item Value Reference Range Interpretation Comme nts CHOLESTEROL (test code = 2210) 172 MG/DL TRIGLYCERIDES (test code = 2232) 169 MG/DL HDL CHOLESTEROL (test code = 2220) 34 MG/DL CALC LDL CHOL (test code = 2237) 109 MG/DL RISK RATIO LDL/HDL (test cod e = 2238) 3.21 RATIO Jose C Vargas [id number] 00:00:00* Test Item Value Reference Range Interpretation Comme nts RPR RESULT (test code = 3501) NON-REACTIVE RPR TITER (test code = 3500) NOT INDIC. TITER Jose C SanchezCT/NG, TMA, [id number] 00:00:00* Test Item Value Reference Range Interpretation Comme nts GONORRHEA, NAAT (test code = 31416) NEGATIVE CHLAMYDIA, NAAT (test code = 43869) NEGATIVE Jose C SanchezPSA, [id number] 00:00:00* Test Item Value Reference Range Interpretation Comme nts PSA, TOTAL (test code = 2606) 0.99 NG/ML Jose C SanchezLIPID [id number] 00:00:00* Test Item Value Reference Range Interpretation Comme nts CHOLESTEROL (test code = 2210) 172 MG/DL TRIGLYCERIDES (test code = 2232) 169 MG/DL HDL CHOLESTEROL (test code = 2220) 34 MG/DL CALC LDL CHOL (test code = 2237) 109 MG/DL RISK RATIO LDL/HDL (test cod e = 2238) 3.21 RATIO Jose C Vargas [id number] 00:00:00* Test Item Value Reference Range Interpretation Comme nts RPR RESULT (test code = 3501) NON-REACTIVE RPR TITER (test code = 3500) NOT INDIC. TITER Jose C Vargas [place]CT/NG, TMA, [id number] 00:00:00* Test Item Value Reference Range Interpretation Comme nts GONORRHEA, NAAT (test code = 82869) NEGATIVE CHLAMYDIA, NAAT (test code = 74890) NEGATIVE Jose C SanchezPSA, [id number] 00:00:00* Test Item Value Reference Range Interpretation Comme nts PSA, TOTAL (test code = 2606) 0.99 NG/ML Jose C Vargas AustinLIPID [id number] 00:00:00* Test Item Value Reference Range Interpretation Comme nts CHOLESTEROL (test code = 2210) 172 MG/DL TRIGLYCERIDES (test code = 2232) 169 MG/DL HDL CHOLESTEROL (test code = 2220) 34 MG/DL CALC LDL CHOL (test code = 2237) 109 MG/DL RISK RATIO LDL/HDL (test cod e = 2238) 3.21 RATIO Jose C Vargas [id number] 00:00:00* Test Item Value Reference Range Interpretation Comme nts RPR RESULT (test code = 3501) NON-REACTIVE RPR TITER (test code = 3500) NOT INDIC. TITER Jose C SanchezCT/NG, TMA, [id number] 00:00:00* Test Item Value Reference Range Interpretation Comme nts GONORRHEA, NAAT (test code = 13542) NEGATIVE CHLAMYDIA, NAAT (test code = 13455) NEGATIVE Jose C SanchezPSA, [id number] 00:00:00* Test Item Value Reference Range Interpretation Comme nts PSA, TOTAL (test code = 2606) 0.99 NG/ML Jose C Vargas AustinLIPID [id number] 00:00:00* Test Item Value Reference Range Interpretation Comme nts CHOLESTEROL (test code = 2210) 172 MG/DL TRIGLYCERIDES (test code = 2232) 169 MG/DL HDL CHOLESTEROL (test code = 2220) 34 MG/DL CALC LDL CHOL (test code = 2237) 109 MG/DL RISK RATIO LDL/HDL (test cod e = 2238) 3.21 RATIO Jose C Vargas AustinHEMOGLOBIN [id number] 07:02:52* Test Item Value Reference Range Interpretation Comme nts HEMOGLOBIN A1c (test code = 93148) 5.8 % 4.2-5.6 H UNLESS OTHERWISE INDICATED, ALL TESTING PERFORMED [facility] [employer] [address] [place] [id number] PHYSICAL THERAPY AIDES TEACHER: DILSHAD KOTHARI M.D. [place] NUMBER [id number] [facility] [place]. [id number] HEMOGLOBIN [id number] 00:00:00* Test Item Value Reference Range Interpretation Comme nts HEMOGLOBIN A1c (test code = 94928) 5.8 % Jose C Vargas AustinHEMOGLOBIN [id number] 00:00:00* Test Item Value Reference Range Interpretation Comme nts HEMOGLOBIN A1c (test code = 57748) 5.8 % Jose C Vargas AustinHEMOGLOBIN [id number] 00:00:00* Test Item Value Reference Range Interpretation Comme nts HEMOGLOBIN A1c (test code = 25332) 5.8 % Jsoe C Vargas AustinHEMOGLOBIN [id number] 00:00:00* Test Item Value Reference Range Interpretation Comme nts HEMOGLOBIN A1c (test code = 67495) 5.8 % Jose C Vargas AustinHEMOGLOBIN [id number] 00:00:00* Test Item Value Reference Range Interpretation Comme nts HEMOGLOBIN A1c (test code = 89752) 5.8 % Jose C Vargas AustinHEMOGLOBIN [id number] 00:00:00* Test Item Value Reference Range Interpretation Comme nts HEMOGLOBIN A1c (test code = 52459) 5.8 % Jose C Vargas AustinHEMOGLOBIN [id number] 00:00:00* Test Item Value Reference Range Interpretation Comme nts HEMOGLOBIN A1c (test code = 21757) 5.8 % Jose C Sam AustinHEMOGLOBIN [id number] 00:00:00* Test Item Value Reference Range Interpretation Comme nts HEMOGLOBIN A1c (test code = 36956) 5.8 % Jose C Vargas AustinHEMOGLOBIN [id number] 00:00:00* Test Item Value Reference Range Interpretation Comme nts HEMOGLOBIN A1c (test code = 53199) 5.8 % Jose C Vargas AustinHEMOGLOBIN [id number] 00:00:00* Test Item Value Reference Range Interpretation Comme nts HEMOGLOBIN A1c (test code = 92032) 5.8 % Jose C Vargas Daniel Notes Date/Time Note [facility] Jose C Ybar[facility]2024-10-07 16:17:15 Chief Complaint Patient presents with Physical Patient is not fasting REFILLS-NURSE/MD Lorena Ken MA II T [facility]2024-04-15 00:00[facility]00 [facility]
[2024-08-23] MEDS ORDERED: KETOROLAC 30 MG/ML INJ ONE (19:51)
[2024-08-23] MEDS ORDERED: ONDANSETRON 4 MG/2 ML VIAL ONE (19:51)
[2024-08-23] MEDS ORDERED: BENZONATATE 100 MG CAP PO ONE (19:52)
[2024-08-23] MEDS ORDERED: GUAIFENESIN/DM 5 ML UCUP ONE (19:52)
[2024-08-23] MEDS ORDERED: NA CHLORIDE 0.9% 1,000 ML ONE (19:53)
[2024-08-23 20:28] LABS: Absolute Basophils 0.1 K/uL (0-0.5); Absolute Lymphocytes (CBC) 1.5 K/uL (0.7-4.9); Absolute Monocytes 0.9 K/uL (0.1-1.3); Basophils % 0.4 % (0-1.3); Eosinophils % 0.3 % (0-4.4); Hemoglobin 15.3 g/dL (13.6-17.9); Lymphocytes % 10.5 % (15.3-44.8); MCH 29.3 pg (27.0-35.0); MCV 86.1 fL (80-100); MPV 7.3 fL (7.6-11.3); Monocytes % 6.3 % (3.3-12.3); Neutrophils % 82.5 % (41.7-73.7); Nucleated Red Blood Cells % 0.1 % (0-0); Platelets 271 thou/uL (152-406); RBC Red Blood Cell Count 5.23 M/uL (4.33-5.43); Red Cell Distribution Width 13.1 % (12.1-15.2)
[2024-08-23 20:35] LABS: Albumin 3.6 g/dL (3.4-5.0); Albumin/Globulin Ratio 0.9 (1.1-1.8); Anion Gap 8.5 mEq/L (5.0-15.0); Bilirubin Total 0.3 mg/dL (0.2-1.0); C-Reactive Protein 4.15 mg/L (<3.00); Potassium 3.5 mEq/L (3.5-5.1); Protein, Total 7.6 g/dL (6.4-8.2)
[2024-08-23 20:41] LABS: Specific Gravity > 1.030 (1.005-1.030); Sqamous Epithelial <5 /HPF (None Seen); Urine Bacteria None Seen /HPF (<20); Urine Bilirubin NEGATIVE (Negative); Urine Blood Negative (Negative); Urine Clarity Clear (Clear); Urine Color Light-Yellow (Yellow); Urine Glucose 2+ (Negative); Urine Ketones NEGATIVE (Negative); Urine Micro Reflex YN NO BILL MICROSCOPIC; Urine Nitrite NEGATIVE (Negative); Urine Protein NEGATIVE (Negative); Urine RBC <5 /HPF (None Seen); Urine Urobilinogen Normal (Normal); Urine WBC <5 /HPF (<5); Urine pH 5.5 (5.0-7.0)
--- NOTE | 2024-08-23 21:38 | RAD REPORT ---
EXAMINATION: TWO VIEW CHEST XR CLINICAL INDICATION: eval for pneumonia TECHNIQUE: 2 views of the chest was performed. COMPARISON: 12/02/2022 FINDINGS: Nonspecific peribronchial thickening could represent a viral infection or reactive airway disease. No focal consolidation to suggest pneumonia. The heart is upper limit of normal in size. No displaced fractures evident.
[2024-08-23] MEDS ORDERED: AZITHROMYCIN 250 MG TAB ONE (21:44)
--- NOTE | 2024-08-23 21:46 | EDPHYS ---
Physician Documentation [facility] Name: Krzysztof Granado Age: 58 yrs Sex: Male : 1965 Arrival Date: 08/23/2024 Time: 19:03 Bed 15 Private MD: ED Physician Sinan Arellano HPI: 08/23 19:06 This 58 yrs old Other Race Male presents to ER via Unassigned with complaints of sp4 Congestion, Fatigue. 08/24 01:48 Easy [id number] male who presents with complaint of bodyaches, cough congestion sp4 sputum. Patient was at [facility] yesterday was tested for flu and COVID. Patient was found negative for flu and COVID. Patient was prescribed cough suppressant. 01:49 Patient's medications include lisinopril 10 mg daily, metformin 500 mg p.o. twice sp4 daily, atorvastatin daily. Historical: - Allergies: 08/23 19:25 Benadryl; ha1 19:25 Sudafed; ha1 - PMHx: 19:25 diabetes mellitus; Hypercholesterolemia; Hypertensive disorder; PE; ha1 - PSHx: 19:25 None; ha1 - Immunization history:: Adult Immunizations up to date. - Infectious Disease History:: Denies. - Social history:: Smoking status: Patient denies any tobacco usage or history of. - Family history:: not pertinent. ROS: 08/24 01:50 Constitutional: Negative for fever, chills, and weight loss, positive body aches, sp4 positive cough congestion and sputum. All other systems are negative, Exam: 01:50 Constitutional: This is a well developed, well nourished patient who is awake, alert, sp4 and in no acute distress. Head/Face: Normocephalic, atraumatic. Eyes: Pupils equal round and reactive to light, extra-ocular motions intact. Lids and lashes normal. Conjunctiva and sclera are not injected. Cornea within normal limits. Periorbital areas with no swelling, redness, or edema. ENT: Nares patent. No nasal discharge, no septal abnormalities noted. Tympanic membranes are normal and external auditory canals are clear. Oropharynx with bilateral redness, bilateral erythema, bilateral pharyngeal irritation, positive for uvula swelling Neck: Trachea midline, no thyromegaly or masses palpated, and no cervical lymphadenopathy. Supple, full range of motion without nuchal rigidity, or vertebral point tenderness. Chest/axilla: Normal chest wall appearance and motion. Nontender with no deformity. No lesions are appreciated. Cardiovascular: Regular rate and rhythm with a normal S1 and S2. No gallops, murmurs, or rubs. Normal PMI, no JVD. No pulse deficits. Respiratory: Lungs have equal breath sounds bilaterally, clear to auscultation and percussion. No rales, rhonchi or wheezes noted. No increased work of breathing, no retractions or nasal flaring. Abdomen/GI: Soft, with normal bowel sounds. No distension or tympany. No guarding or rebound. No evidence of tenderness throughout. Back: No spinal tenderness. No costovertebral tenderness. Skin: Warm, dry with normal turgor. Normal color with no rashes, no lesions, and no evidence of cellulitis. MS/ Extremity: Pulses equal, no cyanosis. Neurovascular intact. Full, normal range of motion. Neuro: Awake and alert, GCS 15, oriented to person, place, time, and situation. Cranial nerves II-XII grossly intact. Motor strength 5/5 in all extremities. Sensory grossly intact. Psych: Awake, alert, with orientation to person, place and time. Behavior, mood, and affect are within normal limits Vital Signs: 08/23 19:22 BP 124 / 91; Pulse 101; Resp 17; Temp 98.7(O); Pulse Ox 97% on R/A; Weight 104.78 kg; ha1 Height 5 ft. 10 in. ; 20:00 BP 125 / 80; Pulse 97; Resp 18; Pulse Ox 97% ; rg5 21:00 BP 98 / 60; Pulse 95; Resp 18; Pulse Ox 97% on R/A; rg5 22:00 BP 116 / 69; Pulse 94; Resp 18; Pulse Ox 98% on R/A; rg5 19:22 Body Mass Index 33.14 (104.78 kg, 177.8 cm) ha1 Cassie Coma Score: 08/24 01:50 Eye Response: spontaneous(4). Motor Response: obeys commands(6). Verbal Response: sp4 oriented(5). Total: 15. MDM: 08/23 19:17 Medical Screening Exam initiated sp4 08/24 01:50 Differential Diagnosis altered mental status, sepsis, flu. Data reviewed: vital signs, sp4 nurses notes, lab test result(s), radiologic studies, plain films. Consideration of Admission/Observation Escalation of care including admission/observation considered. ED course: EXAMINATION: TWO VIEW CHEST XR CLINICAL INDICATION: eval for pneumonia TECHNIQUE: 2 views of the chest was performed. COMPARISON: 12/02/2022 FINDINGS: Nonspecific peribronchial thickening could represent a viral infection or reactive airway disease. No focal consolidation to suggest pneumonia. The heart is upper limit of normal in size. No displaced fractures evident. Reported By: Shahzad Monk. 01:52 ED course: Stable for discharge home with medications listed below.. [facility] 08/23 19:28 Order name: CBC with Diff; Complete Time: 20:38 [facility] 08/23 19:28 Order name: CMP; Complete Time: 20:38 [facility] 08/23 19:28 Order name: Lipase; Complete Time: 20:38 [facility] 08/23 19:28 Order name: CRP; Complete Time: 20:38 [facility] 08/23 19:28 Order name: UA W/ Microscopic; Complete Time: 20:46 [facility] 08/23 20:46 Order name: Chest Pa And Lat (2 Views) XRAY; Complete Time: 21:41 [facility] 08/23 19:28 Order name: IV Saline Lock; Complete Time: 20:10 [facility] 08/23 19:28 Order name: Labs collected and sent; Complete Time: 20:10 4 Administered Medications: 08/23 19:50 Drug: TORadol - Ketorolac IVP 30 mg IVP once Route: IVP; Site: right antecubital; rg5 20:43 Follow up: Response: No adverse reaction; Pain is decreased rg5 19:50 Drug: Ondansetron IVP 4 mg IVP once; over 2 minutes Route: IVP; Site: right antecubital;rg5 20:43 Follow up: Response: No adverse reaction rg5 19:50 Drug: NS 0.9% IV 1000 ml IV at 1 bolus Per protocol; to be given as a bolus over 60 rg5 minutes Route: IV; Rate: 1 bolus; Site: right antecubital; 21:00 Follow up: IV Status: Completed infusion; IV Intake: 1000ml rg5 19:50 Drug: Dextromethorphan-Guaifenesin PO Liquid 10 mg-100 mg/5 mL 10 ml PO once Route: PO; rg5 20:43 Follow up: Response: No adverse reaction rg5 19:50 Drug: Tessalon Perle PO 200 mg PO once Route: PO; rg5 20:43 Follow up: Response: No adverse reaction rg5 21:45 Drug: AZITHromycin PO 500 mg PO once Route: PO; rg5 22:12 Follow up: Response: No adverse reaction rg5 Disposition Summary: 08/23/24 21:45 Discharge Ordered Notes: Location: Home sp4 Problem: new sp4 Symptoms: have improved sp4 Condition: Stable sp4 Diagnosis - Acute pharyngitis, unspecified sp4 - Upper respiratory infection sp4 - Cough sp4 Followup: sp4 - With: Private Physician - When: 7 - 10 days - Reason: Recheck today's complaints Discharge Instructions: - Discharge Summary Sheet sp4 - Pharyngitis sp4 Forms: - Patient Portal Instructions sp4 Prescriptions: - dextromethorphan-guaifenesin 20-400 mg Oral tablet - take 1 tablet ORAL route every 6 hours as needed for cough; 60 tablet; Refills: sp4 0, Product Selection Permitted - naproxen 500 mg Oral tablet - take 1 tablet ORAL route 2 times per day PRN fever or pain; 50 tablet; Refills: sp4 0, Product Selection Permitted - Zithromax Z-Ramiro 250 mg Oral Tablet - take 1 tablet ORAL route as directed for 5 days Day 1 - take two (2) tablets sp4 one time. Day 2, 3, 4 , 5 take one (1) tablet once daily.; 6 tablet; Refills: 0, Product Selection Permitted - benzonatate 200 mg Oral capsule - take 1 capsule ORAL route every 6 hours as needed; 60 capsule; Refills: 0, sp4 Product Selection Permitted - promethazine 25 mg Oral tablet - take 1 tablet ORAL route every 6 hours As needed PRN nausea; 30 tablet; sp4 Refills: 0, Product Selection Permitted Signatures: Dispatcher [employer] Michelle Ramesh RN RN ha1 Sinan Arellano MD MD sp4 Guzman Hartley RN RN rg5
--- NOTE | 2024-08-23 21:46 | ER ---
Nurse's Notes [facility] Name: Krzysztof Granado Age: 58 yrs Sex: Male : 1965 Arrival Date: 08/23/2024 Time: 19:03 Bed 15 Private MD: Diagnosis: Acute pharyngitis, unspecified;Upper respiratory infection ;Cough Presentation: 08/23 19:22 Chief complaint: Patient states: COUGH, CONGESTION, CHILLS, HEADACHE AND SORE THROAT X4 ha1 DAYS. REPORTS WENT TO THE CLINIC YESTERDAY AND HAD COVID AND STREP TEST, NEGATIVE. REPORTS WAS GIVEN A STEROID SHOT AND COUGH MEDICATION RX BUT DID NOT FILL IT. Coronavirus screen: chills, congestion, cough unrelated to allergies, headache, muscle pain, sore throat. Ebola Screen: No symptoms or risks identified at this time. Resp Distress? No respiratory distress is noted at this time. Initial Sepsis Screen: Does the patient meet any 2 criteria? No. Patient's initial sepsis screen is negative. Does the patient have a suspected source of infection? No. Patient's initial sepsis screen is negative. Risk Assessment: Do you want to hurt yourself or someone else? Patient reports no desire to harm self or others. Onset of symptoms was August 19, 2024. 19:22 Method Of Arrival: Ambulatory ha1 19:22 Acuity: SIMONA 4 ha1 Triage Assessment: 19:25 General: Appears in no apparent distress. uncomfortable, Behavior is calm, cooperative, ha1 appropriate for age. Pain: Complains of pain in GENERALIZED BODYACHES. Respiratory: Reports cough that is non-productive, Airway is patent Respiratory effort is even, unlabored, Respiratory pattern is regular, symmetrical, Breath sounds are clear bilaterally. Historical: - Allergies: 19:25 Benadryl; ha1 19:25 Sudafed; ha1 - PMHx: 19:25 diabetes mellitus; Hypercholesterolemia; Hypertensive disorder; PE; ha1 - PSHx: 19:25 None; ha1 - Immunization history:: Adult Immunizations up to date. - Infectious Disease History:: Denies. - Social history:: Smoking status: Patient denies any tobacco usage or history of. - Family history:: not pertinent. Screenin:30 [facility] ED Fall Risk Assessment (Adult) History of falling in the last 3 months, rg5 including since admission No falls in past 3 months (0 pts) Confusion or Disorientation No (0 pts) Intoxicated or Sedated No (0 pts) Impaired Gait No (0 pts) Mobility Assist Device Used No (0 pt) Altered Elimination No (0 pt) Score/Fall Risk Level 0 - 2 = Low Risk Oriented to surroundings, Maintained a safe environment, Hourly rounding (assess needs \T\ fall precautionary measures) done. Abuse screen: Denies threats or abuse. Nutritional screening: No deficits noted. Tuberculosis screening: No symptoms or risk factors identified. Assessment: 19:30 General: Appears in no apparent distress. comfortable, Behavior is calm, cooperative, rg5 appropriate for age. 19:30 Neuro: Level of Consciousness is awake, alert, obeys commands, Oriented to person, rg5 place, time. Cardiovascular: Patient's skin is warm and dry. Rhythm is regular. Respiratory: Reports cough that is Airway is patent Trachea midline. Respiratory: Breath sounds are clear. GI: Abdomen is round non-distended. : No signs and/or symptoms were reported regarding the genitourinary system. EENT: No deficits noted. Derm: Skin is intact, Skin is dry, Skin is normal, Skin temperature is warm. Musculoskeletal: Circulation, motion, and sensation intact. Range of motion: intact in all extremities. 20:00 Reassessment: No changes from previously documented assessment. Patient and/or family rg5 updated on plan of care and expected duration. Pain level reassessed. Patient is alert, oriented x 3, equal unlabored respirations, skin warm/dry/pink. 21:00 Reassessment: Patient and/or family updated on plan of care and expected duration. Pain rg5 level reassessed. Patient is alert, oriented x 3, equal unlabored respirations, skin warm/dry/pink. Patient states feeling better. 22:00 Reassessment: Patient and/or family updated on plan of care and expected duration. Pain rg5 level reassessed. Patient is alert, oriented x 3, equal unlabored respirations, skin warm/dry/pink. Patient states symptoms have improved. Vital Signs: 19:22 BP 124 / 91; Pulse 101; Resp 17; Temp 98.7(O); Pulse Ox 97% on R/A; Weight 104.78 kg; ha1 Height 5 ft. 10 in. ; 20:00 BP 125 / 80; Pulse 97; Resp 18; Pulse Ox 97% ; rg5 21:00 BP 98 / 60; Pulse 95; Resp 18; Pulse Ox 97% on R/A; rg5 22:00 BP 116 / 69; Pulse 94; Resp 18; Pulse Ox 98% on R/A; rg5 19:22 Body Mass Index 33.14 (104.78 kg, 177.8 cm) ha1 Cassie Coma Score: 08/24 01:50 Eye Response: spontaneous(4). Motor Response: obeys commands(6). Verbal Response: sp4 oriented(5). Total: 15. ED Course: 08/23 19:05 Patient arrived in ED. mr 19:06 Sinan Arellano MD is Attending Physician. sp4 19:20 Guzman Hartley, SERA is Primary Nurse. rg5 19:25 Triage completed. ha1 19:26 Arm band placed on right wrist. ha1 19:30 Patient has correct armband on for positive identification. Bed in low position. Call rg5 light in reach. Side rails up X 1. Door closed. Noise minimized. 19:30 No provider procedures requiring assistance completed. Inserted saline lock: 20 gauge rg5 in right antecubital area, using aseptic technique. Blood collected. Flushed with 10 mL NS. Patient maintains SpO2 saturation greater than 95% on room air. 21:19 Chest Pa And Lat (2 Views) XRAY In Process Unspecified. EDMS 22:15 Provided Education on: post er care. rg5 22:15 IV discontinued, bleeding controlled, No redness/swelling at site. Pressure dressing rg5 applied. Administered Medications: 19:50 Drug: TORadol - Ketorolac IVP 30 mg IVP once Route: IVP; Site: right antecubital; rg5 20:43 Follow up: Response: No adverse reaction; Pain is decreased rg5 19:50 Drug: Ondansetron IVP 4 mg IVP once; over 2 minutes Route: IVP; Site: right antecubital;rg5 20:43 Follow up: Response: No adverse reaction rg5 19:50 Drug: NS 0.9% IV 1000 ml IV at 1 bolus Per protocol; to be given as a bolus over 60 rg5 minutes Route: IV; Rate: 1 bolus; Site: right antecubital; 21:00 Follow up: IV Status: Completed infusion; IV Intake: 1000ml rg5 19:50 Drug: Dextromethorphan-Guaifenesin PO Liquid 10 mg-100 mg/5 mL 10 ml PO once Route: PO; rg5 20:43 Follow up: Response: No adverse reaction rg5 19:50 Drug: Tessalon Perle PO 200 mg PO once Route: PO; rg5 20:43 Follow up: Response: No adverse reaction rg5 21:45 Drug: AZITHromycin PO 500 mg PO once Route: PO; rg5 22:12 Follow up: Response: No adverse reaction rg5 Medication: 19:30 VIS not applicable for this client. rg5 Intake: 21:00 IV: 1000ml; Total: 1000ml. rg5 Outcome: 21:45 Discharge ordered by . sp4 22:15 Discharged to home ambulatory, rg5 22:15 Condition: stable 22:15 Discharge instructions given to Instructed on discharge instructions, Prescriptions given X 4, 22:15 Patient left the ED. rg5 Signatures: Dispatcher [employer] [facility] Lala Orellana, [facility] Reg mr Michelle Dominguez, RN RN Sinan Hankins MD MD sp4 Guzman Hartley RN RN rg5
[2024-08-23 22:23] VITALS: TEMP 98.7
[2024-08-23 22:26] VITALS: BP 116/69; O2SAT 98
== END 2024-08-23 22:15 | disposition home or self-care (01) ==
LOC: ER 19:03
DX: J06.9 Acute upper respiratory infection, unspecified (principal); J02.9 Acute pharyngitis, unspecified; E11.9 Type 2 diabetes mellitus without complications; I10 Essential (primary) hypertension
CPT/HCPCS: 96361; 85025; 81001; 36415; 83690; 80053; 86140; 71046; 96375; 96374; 99284; J2405; J7030